=== PATIENT | male | born 1945 | race Caucasian/White ===

== ENCOUNTER 2023-09-16 20:34 | Inpatient (IN) | payer MEDICARE, SELFPAY ==
--- NOTE | ~2023-09-16 | XR_ITS ---
EXAMINATION: XR CHEST CLINICAL INFORMATION: CHF COMPARISON: None available. TECHNIQUE: Frontal view of the chest was obtained. FINDINGS: There is mild cardiomegaly with increased Sclerotic suggestive of CHF. The lungs are otherwise well-expanded with patchy opacity left lung base likely infiltrate or atelectasis. No gross bony abnormality. XR/XR chest 1V IMPRESSION: 1. Cardiomegaly with mild CHF. 2. Patchy opacity left lung base likely infiltrate or compressive atelectasis.
[2023-09-16 20:35] VITALS: O2SAT 68
[2023-09-16 20:43] VITALS: BP 178/112; PULSE 107; RESP 34; O2SAT 92; BMI 35.9
--- NOTE | 2023-09-16 20:45 | ECG_ITS ---
Test Reason : CHF Blood Pressure : / mmHG Vent. Rate : 106 BPM Atrial Rate : 000 BPM P-R Int : 000 ms QRS Dur : 120 ms QT Int : 368 ms P-R-T Axes : 000 -29 071 degrees QTc Int : 488 ms Undetermined rhythm Possible Atrial fibrillation with occasional Premature ventricular complexes Septal infarct , age undetermined Intra-ventricular conduction delay Abnormal ECG No previous ECGs available Referred By: Gail Vargas Electronically Signed By:MARIANGEL CHANEY MD
--- NOTE | 2023-09-16 20:48 | ED.SOB ---
HPI - SOB/Dyspnea General Chief Complaint: Dyspnea Stated Complaint: sob, hx chf, 68% ON 2L, ON CPAP NOW 93% Time Seen by Provider: 09/16/23 20:37 Source: EMS Mode of arrival: EMS Limitations: other History of Present Illness HPI Narrative: Patient comes to the emergency room via ambulance for severe shortness of breath. According to the paramedics, patient has history of CHF, no history of asthma or COPD. Patient's informed the paramedics that the patient usually uses 2 L of oxygen at home at baseline. Today, even with his 2 L, patient was very short of breath and his oxygen saturation was 68%. When EMS arrived, they confirmed that the patient was severely hypoxic. They tried increasing the oxygen to 6 L, oxygen saturation improved to the low 80s. Patient was switched to a CPAP, no medications were given. On arrival, patient has moderate to severe respiratory distress, unable to give any history at this time. Related Data Home Medications ?Medication ?Instructions ?Recorded ?Confirmed acetaminophen 325 mg tablet 1,000 mg PO DAILY 09/17/23 11/15/23 amlodipine 2.5 mg tablet 2.5 mg PO DAILY 09/17/23 11/15/23 apixaban 5 mg tablet 5 mg PO BID 09/17/23 11/15/23 duloxetine 60 mg capsule,delayed 60 mg PO DAILY 09/17/23 11/15/23 release finasteride 5 mg tablet 5 mg PO BEDTIME 09/17/23 11/15/23 furosemide 40 mg tablet 40 mg PO DAILY 09/17/23 11/15/23 ketoconazole 2 % shampoo 1 appl topical Q48H PRN dandruff 09/17/23 11/15/23 metoprolol succinate 50 mg 50 mg PO DAILY 09/17/23 11/15/23 tablet,extended release 24 hr omeprazole 20 mg capsule,delayed 20 mg PO DAILY@0630 09/17/23 11/15/23 release tamsulosin 0.4 mg capsule 0.4 mg PO BEDTIME 09/17/23 11/15/23 vibegron 75 mg tablet (Gemtesa) 75 mg PO BEDTIME 09/17/23 11/15/23 vitamin A-vitamin C-vit E-min 1 tab PO DAILY 09/17/23 11/15/23 tablet albuterol 90 mcg/actuation aerosol 1 mcg inhalation Q4H PRN Shortness 11/15/23 11/15/23 inhaler Of Breath Or Wheezing Allergies Allergy/AdvReac Type Severity Reaction Status Date / Time No Known Allergies Allergy Verified 11/15/23 09:50 Review of Systems Review of Systems: Yes Unobtainable due to mental condition REPLACED BY [facility] Past Medical History Medical History Chronic respiratory failure DVT (deep venous thrombosis) Afib Acute on chronic systolic and diastolic heart failure, NYHA class 3 Pneumonia Social History Social History Household Members: Spouse Household Members Other:: Kezia, . Housing: House Housing Other:: [facility] ?assisted living. Do you presently have visiting nurse or other home services: No Alcohol intake: current Alcohol intake frequency: holidays/special occasions only Patient Tobacco Use Status: Never used Tobacco service: No Physical Exam Vital Signs: Vital Signs: Last Vital Signs Temp 97.9 F 09/20/23 11:10 Pulse 73 09/20/23 11:10 Resp 18 09/20/23 11:10 BP 122/66 09/20/23 11:10 Pulse Ox 94 09/20/23 11:10 O2 Del Method Nasal Cannula 09/20/23 11:10 O2 Flow Rate 2 09/20/23 04:00 BMI result Body Mass Index 35.9 Const: Other: Appearance: Alert. Oriented X3. In respiratory distress, unable to talk Eyes: Pupils equal, round and reactive to light. ENT: Pharynx normal. Neck: Normal inspection. Neck supple. No lymph nodes noted. No crepitus CVS: Normal heart rate and rhythm. Pulses normal. Normal S1 and S2 Respiratory: In respiratory distress, unable to talk, bilateral crackles and rales Abdomen: Soft and nontender. No rigidity. No distention. Skin: Skin warm and dry. Normal skin color. Normal skin turgor. Extremities: +4 pitting edema bilaterally No Lacerations. No Rash Neuro: Oriented X 3. No motor deficit. No sensory deficit. Moving all extremities. No slurred speech. CN 2 through 12 grossly intact Psych: Anxious Course Course Course Narrative: -on arrival to the emergency room, patient was given IV Lasix, 1 in of nitropaste, started on CPAP. -after couple of hours, patient was able to be weaned down to nasal cannula 4 L, oxygen saturation 94%. Medications Administered Discontinued Medications Generic Name Dose Route Start Last Admin Trade Name Ricky PRN Reason Stop Dose Admin Amlodipine Besylate 2.5 mg 09/17/23 09:00 09/19/23 09:58 Amlodipine Besylate 2.5 Mg Tablet PO 2.5 mg DAILY REZA Administration Protocol Apixaban 5 mg 09/17/23 09:00 09/20/23 07:39 Apixaban 5 Mg Tablet PO 5 mg BID REZA Administration Apixaban 5 mg 09/17/23 09:00 09/17/23 09:02 Apixaban 5 Mg Tablet PO Not Given BID REZA Azithromycin 500 mg 09/16/23 21:50 09/16/23 22:28 Azithromycin 500 Mg Tablet PO 09/16/23 21:51 500 mg ONCE ONE Administration Azithromycin 500 mg 09/17/23 21:00 09/19/23 21:47 Azithromycin 500 Mg Tablet PO 500 mg BEDTIME REZA Administration Azithromycin 500 mg 09/20/23 14:50 09/20/23 15:03 Azithromycin 500 Mg Tablet PO 09/20/23 14:51 500 mg ONCE ONE Administration Cefuroxime Axetil 500 mg 09/20/23 14:50 09/20/23 15:03 Cefuroxime Axetil 500 Mg Tablet PO 09/20/23 14:51 500 mg ONCE ONE Administration Duloxetine HCl 60 mg 09/17/23 09:00 09/20/23 07:39 Duloxetine Hcl 60 Mg Capsule. PO 60 mg DAILY REZA Administration Duloxetine HCl 60 mg 09/17/23 09:00 09/17/23 09:03 Duloxetine Hcl 60 Mg Capsule. PO Not Given DAILY REZA Empagliflozin 10 mg 09/19/23 11:00 09/20/23 07:39 Empagliflozin 10 Mg Tablet PO 10 mg DAILY REZA Administration Finasteride 5 mg 09/17/23 09:00 09/20/23 07:40 Finasteride 5 Mg Tablet PO 5 mg DAILY REZA Administration Finasteride 5 mg 09/17/23 09:00 09/17/23 09:03 Finasteride 5 Mg Tablet PO Not Given DAILY REZA Furosemide 80 mg 09/16/23 20:44 09/16/23 21:05 Furosemide 100 Mg/10 Ml Vial IVPUSH 09/16/23 20:45 80 mg ONCE ONE Administration Protocol Furosemide 40 mg 09/17/23 09:00 09/19/23 10:02 Furosemide 40 Mg/4 Ml Vial IVPUSH Not Given BID@0900,1800 [facility] Protocol Furosemide 40 mg 09/20/23 09:15 09/20/23 09:10 Furosemide 40 Mg Tablet PO 40 mg DAILY REZA Administration Protocol Ceftriaxone Sodium 1 gm/ 50 mls @ 100 mls/hr 09/16/23 21:50 09/16/23 23:03 Sodium Chloride IV 09/16/23 22:19 Infused ONCE ONE Infusion Ceftriaxone Sodium 1 gm/ 50 mls @ 100 mls/hr 09/17/23 21:00 09/19/23 23:35 Sodium Chloride IV Infused BEDTIME REZA Infusion Furosemide 200 mg/ Sodium 100 mls @ 2.5 mls/hr 09/19/23 09:30 09/20/23 07:55 Chloride IVCONT Infused .Q24H REZA Infusion 5 MG/HR Latanoprost 1 drop 09/17/23 21:00 09/19/23 21:49 Latanoprost 0.005 % Ophth Mariza 2.5 Ml Drops EYE-RIGHT Not Given BEDTIME [facility] Lisinopril 2.5 mg 09/18/23 10:25 09/19/23 09:58 Lisinopril 2.5 Mg Tablet PO 2.5 mg DAILY REZA Administration Protocol Magnesium Oxide 800 mg 09/19/23 09:00 09/20/23 07:40 Magnesium Oxide 400 Mg Tablet PO 800 mg DAILY REZA Administration Metoprolol Succinate 50 mg 09/17/23 09:00 09/17/23 09:01 Metoprolol Succinate Er 50 Mg Tab.Er.24h PO 50 mg DAILY REZA Administration Metoprolol Succinate 50 mg 09/17/23 09:00 09/20/23 07:39 Metoprolol Succinate Er 50 Mg Tab.Er.24h PO 50 mg DAILY REZA Administration Protocol Nitroglycerin 1 inch 09/16/23 20:44 09/16/23 21:05 Nitroglycerin 2 % Oint 1 Gm Packet TRANSDERMA 09/16/23 20:45 1 inch ONCE ONE Administration Omeprazole 20 mg 09/17/23 09:00 09/20/23 07:39 Omeprazole 20 Mg Capsule.Dr PO 20 mg DAILY REZA Administration Potassium Chloride 20 meq 09/19/23 08:16 09/19/23 09:57 Potassium Chloride Packet 20 Meq Packet PO 09/19/23 08:17 20 meq ONCE ONE Administration Potassium Chloride 40 meq 09/20/23 08:57 09/20/23 09:10 Potassium Chloride Packet 20 Meq Packet PO 09/20/23 08:58 40 meq ONCE ONE Administration Potassium Chloride 20 meq 09/20/23 11:55 09/20/23 12:20 Potassium Chloride Er 20 Meq Tab.Er.Prt PO 09/20/23 11:56 20 meq ONCE ONE Administration Sodium Chloride 3 ml 09/17/23 00:00 09/20/23 14:37 0.9 % Sodium Chloride Flush 3 Ml Syringe IVFLUSH 3 ml QSHIFT REZA Administration Tamsulosin HCl 0.4 mg 09/17/23 21:00 09/19/23 21:47 Tamsulosin Hcl 0.4 Mg Capsule PO 0.4 mg BEDTIME REZA Administration Valsartan 40 mg 09/19/23 21:00 09/20/23 07:39 Valsartan 40 Mg Tablet PO 40 mg BID REZA Administration Protocol Valsartan 40 mg 09/20/23 09:15 09/20/23 09:10 Valsartan 40 Mg Tablet PO 40 mg BID REZA Administration Protocol Medical Decision Making Medical Decision Making MDM Narrative: -at this time, 21:50, lab results starting to come back. Patient has a BNP of 609, no prior comparison for a baseline pain. My Interpretation of chest x-ray: Mild CHF. -also, this time chest x-ray report became available, patient has patchy opacities in the left lung, likely pneumonia. At this time, we will start IV antibiotics. Patient is still in CHF, this time we will not start IV fluids -patient was weaned off CPAP. Patient is now on 4 L of oxygen. Now that patient is off CPAP and able to speak. Patient states that he feels much better, almost feels back to baseline. Now he explains that over the last few days he has had some subjective fever and chills. Patient thinks that he may have been finding some viral illness. -patient's blood pressure is stable, patient has not been hypotensive, no fever, after the treatment with CPAP, IV Lasix and a good amount of urine output, patient's vitals stabilized. Patient does have pneumonia but sepsis/severe sepsis is not suspected. Patient's lactic acid elevated secondary to hypoxia from CHF. At this time, even small amounts of fluids would reverse the progress that patient has made do more harm than benefit the patient Differential Diagnosis Differential Diagnoses: The differential diagnosis associated with the presentation includes (CHF, flash pulmonary edema, pneumonia) Admission/Observation Consideration of admission/observation: Escalation of care including admission/observation considered Consult Healthcare Provider Management of the patient was discussed with: Hospitalist Lab Data MDM Lab Attestation statement: I reviewed the patient's lab results. 09/18/23 05:50 09/20/23 06:37 Labs: Lab Results 09/16/23 09/16/23 Range/Units 21:02 23:32 WBC 21.6 H (4.8-10.8) X10*3/uL RBC 5.11 (4.60-5.80) X10*6/uL Hgb 15.9 (14.0-18.0) g/dl Hct 47.2 (42.0-52.0) % MCV 92.4 (80.0-98.0) fL MCH 31.1 (27.0-33.0) pg MCHC 33.7 (31.0-36.0) g/dl RDW 13.1 (11.0-16.0) % Plt Count 212 (160-400) X10*3/uL MPV 10.0 (9.4-12.4) fL Immature Gran % (Auto) 0.5 H (0.0-0.4) % Neut % (Auto) 88.0 H (45-73) % Lymph % (Auto) 6.8 L (20-40) % [place] % (Auto) 4.1 (2-11) % Eos % (Auto) 0.3 (0-4) % Baso % (Auto) 0.3 (0-2) % Lymph # (Auto) 1.5 (1.2-4.9) X10*3/uL [place] # (Auto) 0.9 (0.1-1.2) X10*3/uL Eos # (Auto) 0.1 (0.0-0.4) X10*3/uL Baso # (Auto) 0.1 (0.0-0.2) X10*3/uL Abs Immat Gran (auto) 0.11 H (0.00-0.03) X10*3/uL Absolute Neuts (auto) 19.0 H (2.0-8.3) x10*3/uL Absolute Nucleated RBC 0.000 (0.0-0.012) X10*3/uL Nucleated RBC % (auto) 0.0 (0.0-0.2) /100WBC Sodium 142 (135-145) mmol/L Potassium 3.4 (3.3-5.1) mmol/L Chloride 104 (96-108) mmol/L Carbon Dioxide 27 (22-29) mmol/L Anion Gap 14 (12-20) BUN 16 (9-16) mg/dL Creatinine 0.83 (0.5-1.4) mg/dL Estim Creat Clear Calc 99.2 Estimated GFR > 60 Random Glucose 120 H (60-115) mg/dL Lactic Acid 3.0 H* (0.5-2.0) mmol/L Lactic Acid F/U @ 2Hr 1.6 (0.5-2.0) mmol/L Calcium 9.3 (8.4-10.2) mg/dL Magnesium 1.6 (1.6-2.6) mg/dL Total Bilirubin 1.3 H (0.0-1.0) mg/dL Direct Bilirubin 0.5 (0.0-0.5) mg/dL AST 10 (5-37) U/L ALT 6 (0-40) U/L Alkaline Phosphatase 82 (39-117) U/L Troponin I High Sens 7.8 (<3.5-35.0) ng/L B-Natriuretic Peptide 609 H (<100) pg/mL Total Protein 7.8 (6.5-8.0) g/dL Albumin 4.0 (3.5-5.0) g/dL COVID-19 ([facility]) Negative (Negative) COVID-19 Clin Com See Note Influenza Type A (PCR) NEGATIVE (Negative) Influenza Type B (PCR) NEGATIVE (Negative) RSV RNA Qual (PCR) NEGATIVE (Negative) SARS-CoV-2 RNA (RT-PCR) NEGATIVE (Negative) Independent Interpretation I performed an independent interpretation of an: EKG (Interpretation of EKG: Sinus rhythm, heart rate 106, no ST segment depression or elevation, no T-wave inversion, QTC 488, frequent PVCs) and Plain X-Ray Radiology Impression Discussion of test interpretation with radiology: I have reviewed the radiologist's reading. (My interpretation of chest x-ray: Pulmonary edema, possible pneumonia left lung) Independent Historian Clinical information obtained from an independent historian. History obtained from or confirmed by: Spouse (I spoke with the patient's over the phone) Critical Care Time Critical Care Time Critical Care Time: Yes Total Critical Care Time: 90 Attestation: I have personally provided critical care time. Time includes review of lab data, radiology results, discussion with consultants, and monitoring for potential decompensation. Intervention performed as documented. Discharge Plan Discharge Clinical Impression: Pneumonia CHF exacerbation Qualifiers: Heart failure type: systolic Qualified Code(s): I50.23 - Acute on chronic systolic (congestive) heart failure Patient Disposition: Admitted As Inpatient Interventions: Admission Worksheet (ED) Last Done: 09/17/23 20:59 Discharge Date/Time: 09/17/23 20:59 Sepsis Bolus Exclusion Sepsis Bolus Exclusion Date of Occurrence: 09/16/23 This patient met severe sepsis criteria due to the following condition(s):: Lactate>=4mmol/L and Documentation of septic shock (system making me answer, not a sepsis case, its CHF) In my clinical judgement the administration of 30 ml/kg of crystalloid would be detrimental to this patient due to the patient's following conditions:: Other Other (must be specific):: CHF Replace the 30 mls/kg with (*zero amount not acceptable): *Note: One of the aggarwal must be documented
[2023-09-16 20:56] VITALS: PULSE 107; RESP 29; O2SAT 96
[2023-09-16] MEDS: Furosemide 100 MG/10 ML VIAL 80 MG IVPUSH (21:05)
[2023-09-16] MEDS: Nitroglycerin 2 % Oint 1 GM Packet 1 INCH TRANSDERMA (21:05)
[2023-09-16 21:11] VITALS: BP 173/96; O2SAT 94
[2023-09-16 21:11] LABS: MANUAL DIFF FLAG NO
[2023-09-16 21:13] LABS: Basophils Absolute Auto 0.1 X10*3/uL (0.0-0.2); Basophils Percent Auto 0.3 % (0-2); Eosinophils Absolute Auto 0.1 X10*3/uL (0.0-0.4); Eosinophils Percent Auto 0.3 % (0-4); Hematocrit 47.2 % (42.0-52.0); Hemoglobin 15.9 g/dl (14.0-18.0); Imm Gran Abs Auto 0.11 X10*3/uL (0.00-0.03); Imm Gran Pct Auto 0.5 % (0.0-0.4); Lymphocytes Absolute Auto 1.5 X10*3/uL (1.2-4.9); Lymphocytes Percent Auto 6.8 % (20-40); Mean Corpuscular HGB Conc 33.7 g/dl (31.0-36.0); Mean Corpuscular Hemoglobin 31.1 pg (27.0-33.0); Mean Corpuscular Volume 92.4 fL (80.0-98.0); Monocytes Absolute Auto 0.9 X10*3/uL (0.1-1.2); Monocytes Percent Auto 4.1 % (2-11); Platelet Count 212 X10*3/uL (160-400); Red Blood Count 5.11 X10*6/uL (4.60-5.80); Red Cell Distribution Width 13.1 % (11.0-16.0); White Blood Count 21.6 X10*3/uL (4.8-10.8)
[2023-09-16 21:27] LABS: COVID-19 Test Negative (Negative); IDNOW Serial# 08D9AD1C
[2023-09-16 21:28] LABS: Alanine Aminotransferase 6 U/L (0-40); Alkaline Phosphatase 82 U/L (39-117); Anion Gap 14 (12-20); Aspartate Amino Transferase 10 U/L (5-37); Bilirubin Direct 0.5 mg/dL (0.0-0.5); Bilirubin Total 1.3 mg/dL (0.0-1.0); Blood Urea Nitrogen 16 mg/dL (9-16); Calcium 9.3 mg/dL (8.4-10.2); Carbon Dioxide 27 mmol/L (22-29); Chloride 104 mmol/L (96-108); Creatinine Clr Calc Pharmacy 99.2; Estimated Glomerular Filt Rate > 60; Glucose Random 120 mg/dL (60-115); Magnesium 1.6 mg/dL (1.6-2.6); Potassium 3.4 mmol/L (3.3-5.1); Sodium 142 mmol/L (135-145); Total Protein 7.8 g/dL (6.5-8.0)
[2023-09-16 21:33] LABS: B Type Natriuretic Peptide 609 pg/mL (<100)
[2023-09-16 21:34] LABS: Troponin-I High Sensitivity 7.8 ng/L (<3.5-35.0)
[2023-09-16 21:50] VITALS: BP 125/73
[2023-09-16 22:00] VITALS: BP 119/72; PULSE 101; RESP 18; TEMP 36.8; O2SAT 94
[2023-09-16] MEDS: cefTRIAXone sodium 1 GM in 0.9 % Sodium Chloride 50 ML IV (22:28)
[2023-09-16] MEDS: Azithromycin 500 MG TABLET PO (22:28)
[2023-09-16 22:54] LABS: Reflex Lactate? Lactic Acid Added
--- NOTE | 2023-09-16 23:18 | PC.NURSE ---
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 pt wears 2L o2 at baseline, was found to be 70%, bumped up to 4L by ems, given duoneb tx still 78%, placed on cpap and arrived to ED at 89%. RT placed pt on cpap here, sats up to 95%. ekg done, labs sent, placed on radiation monitor, cxray done, lasix administered via iv with nitropaced, pt using urinal putting out urine no issues. first urine ammount ~400cc in brief. pt then put out ~600 cc in urinal. repeat lactic being drawn, pt given iv abx for pneumonia, on radiation monitor, offers no current complaints reports wob greatly improved, no respiratory distress currently. pt taken off cpap by @~21:45, wearing 4L O2 95% no distress. plan of care ongoing
[2023-09-16 23:49] LABS: ~Lactic Acid-LAB USE ONLY 1.6 mmol/L (0.5-2.0)
--- NOTE | 2023-09-16 23:50 | P.HPHOSP_ITS ---
History of Present Illness Date of Service: 09/16/23 Chief Complaint: sob 78M PMH unspecified CHF, obesity, chronic hypoxic respiratory failure on 2L home oxygen, DVT/PE, permanent afib, HTN, bph, mood disorder, presented with sob. patient reports about 1 week of increased edema and sob. on day of presentation became severe hypoxic and dyspneic, called EMS, patient was saturating in low 80s on 6L, switched to bipap. was in severe respiratory distress in ED, imaging consistent with chf, with question of left basilar penumonia. placed on cpap and given diuretics and nitropaste with significant improvement. Review of Systems 2 Review of Systems: Yes all other systems are reviewed and are negative [facility] Social History Smoked in Last 30 Days: No Use of substances other than those prescribed or required for medical reasons: No Advance Directives: No Advance Directives Information Provided: No Meds Allergies Allergy/AdvReac Type Severity Reaction Status Date / Time No Known Allergies Allergy Verified 09/16/23 20:44 Active Medications: Current Medications Azithromycin (Azithromycin 500 Mg Tablet) 500 mg PO Q24H REZA Furosemide (Furosemide 40 Mg/4 Ml Vial) 40 mg IVPUSH BID@0900,1800 REZA; Protocol Ceftriaxone Sodium 1 gm/ (Sodium Chloride) 50 mls @ 100 mls/hr IV Q24H REZA Sodium Chloride (0.9 % Sodium Chloride Flush 3 Ml Syringe) 3 ml IVFLUSH QSHIFT REZA Physical Exam 2 Vital Signs and Narrative: Vital Signs: Last Vital Signs Temp 98.3 F 09/16/23 22:00 Pulse 101 H 09/16/23 22:00 Resp 18 09/16/23 22:00 BP 119/72 09/16/23 22:00 Pulse Ox 94 09/16/23 22:00 O2 Del Method Nasal Cannula 09/16/23 22:00 O2 Flow Rate 4 09/16/23 22:00 BMI result Body Mass Index 35.9 General: AO X 3, no acute distress Resp: Crackles bilateral, no accessory muscles used CVS: S1,S2,RRR, edema GI: soft, non tender, non distended Neuro: motor grossly intact, alert Psych: appropriate affect, appropriate insight Results Labs 09/16/23 21:02 09/16/23 21:02 Labs: Laboratory Results - last 24 hr 09/16/23 09/16/23 21:02 23:32 MCV 92.4 MCH 31.1 MCHC 33.7 RDW 13.1 Plt Count 212 MPV 10.0 Immature Gran % (Auto) 0.5 H Neut % (Auto) 88.0 H Lymph % (Auto) 6.8 L [place] % (Auto) 4.1 Eos % (Auto) 0.3 Baso % (Auto) 0.3 Lymph # (Auto) 1.5 [place] # (Auto) 0.9 Eos # (Auto) 0.1 Baso # (Auto) 0.1 Abs Immat Gran (auto) 0.11 H Absolute Neuts (auto) 19.0 H Absolute Nucleated RBC 0.000 Nucleated RBC % (auto) 0.0 Anion Gap 14 Estim Creat Clear Calc 99.2 Estimated GFR > 60 Random Glucose 120 H Lactic Acid 3.0 H* Lactic Acid F/U @ 2Hr 1.6 Calcium 9.3 Magnesium 1.6 Total Bilirubin 1.3 H Direct Bilirubin 0.5 AST 10 ALT 6 Alkaline Phosphatase 82 B-Natriuretic Peptide 609 H Total Protein 7.8 Albumin 4.0 COVID-19 ([facility]) Negative COVID-19 Clin Com See Note Imaging Radiologist's Impressions: Impressions Chest X-Ray 09/16/23 21:08 IMPRESSION: 1. Cardiomegaly with mild CHF. 2. Patchy opacity left lung base likely infiltrate or compressive atelectasis. Assessment and Plan (1) CHF exacerbation: Status: Acute Plan 78M PMH unspecified CHF, obesity, chronic hypoxic respiratory failure on 2L home oxygen, DVT/PE, permanent afib, HTN, bph, mood disorder presented with sob acute on chronic hpyoxic respiratory failure due to acute on chronic unspecified chf and possible sepsis due to pneumonia no severe sepsis (resp failure primarly chf, lactate due to hypoxia from chf) iv lasix, echo, wean o2 empiric rocephin, azitrho, follow up cultures obesity weight loss recommended DVT/PE history permanent afib toprol, eliquis HTN amldoipine, toprol bph flomax, proscar mood disorder on cymbalta DNR/DNI patient presented with severe respiratory distress requiring cpap, increased o2, will need iv diuresis, and likely atleast 2 midnights inpatient. Quality Stroke Does the patient have a stroke diagnosis?: No VTE Prior VTE?: Yes VTE Risk Level:: Medical - moderate - high VTE Device Contraindication: Treatment Not Indicated VTE Drug Contraindication: N/A - Med Ordered
[2023-09-17] VITALS (7 sets, daily range): BP systolic 120–133; BP diastolic 61–76; PULSE 82–95; RESP 14–22; TEMP 36.6–37; O2SAT 95–98
[2023-09-17 00:14] LABS: Influenza A PCR NEGATIVE (Negative); Influenza B PCR NEGATIVE (Negative); Resp Syncy Virus RNA Qual PCR NEGATIVE (Negative); SARS COV2 PCR INHOUSE NEGATIVE (Negative)
[2023-09-17 06:41] LABS: Hematocrit 42.9 % (42.0-52.0); Hemoglobin 14.6 g/dl (14.0-18.0); Mean Corpuscular Hemoglobin 31.8 pg (27.0-33.0); Mean Corpuscular Volume 93.5 fL (80.0-98.0); Mean Platelet Volume 10.8 fL (9.4-12.4); Platelet Count 210 X10*3/uL (160-400); Red Blood Count 4.59 X10*6/uL (4.60-5.80); Red Cell Distribution Width 13.2 % (11.0-16.0); White Blood Count 23.6 X10*3/uL (4.8-10.8)
[2023-09-17 06:58] LABS: Anion Gap 13 (12-20); Blood Urea Nitrogen 17 mg/dL (9-16); Calcium 8.8 mg/dL (8.4-10.2); Carbon Dioxide 26 mmol/L (22-29); Chloride 106 mmol/L (96-108); Creatinine Clr Calc Pharmacy 101.7; Estimated Glomerular Filt Rate > 60; Glucose Fasting 137 mg/dL (60-99); Magnesium 1.7 mg/dL (1.6-2.6); Potassium 3.3 mmol/L (3.3-5.1); Sodium 142 mmol/L (135-145)
--- NOTE | 2023-09-17 07:00 | CA_ITS ---
Transthoracic Echocardiogram Patient (Last, First, Middle): Twila Escudero Martin Gender: Male Date of : 1945 Age: 78 Procedure Date: 09/17/2023 Procedure Type: Transthoracic Echocardiogram Location: ER Height: 185. cm Weight: 122.93 kg BSA: 2.44 m2 Heart Rate: 71 bpm BP: 125 / 69 mmHg [employer] Receiving Clerk: RAMONITA Referring MD: Vic Penaloza MD Security Shift Supervisor: Ernesto Monet MD Symptoms: chf Study Quality: Fair/w Contrast ECG Rhythm: Sinus with extra beats Conclusions: - 1. [id number] LV systolic dysfunction with LVEF of 40-45% with severe left ventricular hypertrophy and at least grade 2 diastolic dysfunction 2. Mild left atrial enlargement 3. Calcific aortic valve and mitral annular calcification noted with no significant abnormality of cardiac valvular Dopplers 4. Mildly dilated ascending aorta at 3.9 cm 5. Normal RV systolic pressure 6. No gross pericardial effusion Findings Procedure Information Contrast agent, definity, is being given per protocol without apparent complications. Left Ventricle Normal left ventricular cavity size. There is severely increased left ventricular wall thickness. The left ventricular systolic function is mild to moderately decreased. The visually estimated ejection fraction is between 40-45%. Regional wall motion abnormalities can not be excluded due to suboptimal endocardial definition. Spectral Doppler is indicative of a pseudonormal filling pattern. E/E prime ratio is >15, consistent with elevated filling pressures. Evidence suggests grade II (moderate) diastolic dysfunction. Right Ventricle Mildly increased right ventricular cavity size. There is normal right ventricular systolic function. Atria The left atrium is mildly dilated. Interatrial shunt cannot be excluded. The right atrium is likely dilated. Aortic Valve There is mild calcification of the aortic valve. There is moderate thickening of the aortic valve. There is no aortic valve stenosis. The mean gradient is 5 mmHg. There is no aortic valve regurgitation. Mitral Valve There is mild anterior and moderate posterior mitral leaflet thickening. There is moderate mitral annular calcification. There is trace mitral valve regurgitation. There is no mitral valve stenosis. Pulmonic Valve The pulmonic valve was not well visualized. Tricuspid Valve Likely normal tricuspid valve structure and function. There is trace tricuspid valve regurgitation. The right ventricular systolic pressure is normal. The right ventricular systolic pressure is 31 mmHg. Normal right atrial pressure. There is no evidence of pulmonary hypertension. Great Vessels The pulmonary artery was not well visualized. There is mild dilatation of the ascending aorta measuring 3.90 cm. Venous The inferior vena cava is normal in size and collapses greater than 50% with inspiration. Pericardium/Pleural There is no evidence of pericardial effusion. Prior Study Comparison No prior study available for comparison. Measurements 2D Linear Measurements IVSd: 1.98 0.6-0.9/0.6-1.0 cm LVIDd: 4.61 3.9-5.3/4.2-5.9 cm LVIDd Index: 1.89 2.4-3.2/2.2-3.1 cm/m2 LVIDs: 3.76 2.0-3.6 cm LVPWd: 1.82 0.7-1.1 cm LA Diam: 4.90 2.7-3.8/3.0-4.0 cm LAIDs Index: 2.01 1.5-2.3 cm/m2 LV Mass: 516.73 67-162/88-224 g LV Mass Index: 211.77 43-95/49-115 g/m2 LVOT Diam: 2.40 3.0+(-)1.3 cm 2D Systolic Function EF 4C: 34.80 >55% EF 2C: 45.00 >55% Mitral Valve MV Pk E: 1.00 MV PK A: 0.48 MV Decel Time: 164.00 E/A: 2.10 E'Lateral: 5.92 E'Medial: 5.07 E/E' Med: 19.70 E/E' Lat: 16.90 PHT: 48.00 MVA PHT: 4.58 Decel Giles: 6.12 Aortic Valve AoV Pk Alessio: 1.53 AoV Mn Alessio: 1.07 AoV VTI: 0.25 AoV Pk Grad: 9.00 Aov Mn Grad: 5.00 MIMI Cont.VTI: 2.73 LVOT LVOT Pk Alessio: 0.83 LVOT Mn Alessio: 0.63 LVOT VTI: 0.15 LVOT Pk Grad: 3.00 LVOT Mn Grad: 2.00 LVOT Diam: 2.40 LVOT Area: 4.52 Diastolic Function MV Pk E: 1.00 MV Pk A: 0.48 E/A: 2.10 E'Medial: 5.07 E/E' Med: 19.70 E' Laterial: 5.92 E/E' Lat: 16.90 Right Ventricle TAPSE (mm): 18.80 TVS' Alessio: 11.40 Tricuspid Valve TR Pk Alessio: 2.66 TR Pk Grad: 28.00 RA Press: 3.00 RVSP: 31.00 Great Vessels Aorta Sinus of Valsalva: 3.90 2.0-3.5 cm Ao Asc: 3.90 2.1-3.4 cm Pulmonary Valve PV Pk Alessio: 1.07 Peak PV Grad: 5.00 Updated in Other Vendor System with Status of Final Ernesto Monet MD electronically signed on 09/17/2023 4:06:21 PM with status of Final
--- NOTE | 2023-09-17 08:41 | PHA.MEDREC ---
Pharmacy Consult ? Medication Reconciliation Pharmacy has completed the medication reconciliation with the patient, has detailed med list.
[2023-09-17] MEDS: amLODIPine Besylate 2.5 MG TABLET PO (09:01)
[2023-09-17] MEDS: Metoprolol Succinate ER 50 MG TAB.ER.24H PO (09:01)
[2023-09-17] MEDS: DULoxetine HCl 60 MG CAPSULE.DR PO (09:01)
[2023-09-17] MEDS: Omeprazole 20 MG CAPSULE.DR PO (09:01)
[2023-09-17] MEDS: Furosemide 40 MG/4 ML VIAL IVPUSH ×2 (09:01→19:13)
[2023-09-17] MEDS: Finasteride 5 MG TABLET PO (09:01)
[2023-09-17] MEDS: Apixaban 5 MG TABLET PO ×2 (09:01→22:44)
[2023-09-17] MEDS: 0.9 % Sodium Chloride Flush 3 ML SYRINGE IVFLUSH ×2 (09:02→15:53)
--- NOTE | 2023-09-17 09:13 | PC.NURSE ---
patient remains alert and oriented with even and unlabored respirations. ate breakfast, medicated per the DEC. emptied commode which contained a large bowel movement. patient remains on 4L nasal cannula, states he feels much improvement from last night when he came in. offering no further complaints at this time, call beyer is within reach.
--- NOTE | 2023-09-17 11:06 | P.PNIM_ITS ---
Subjective Subjective Date of Service: 09/17/23 Interval History: f/u on resp failre d/t heart failure and PNA he feels better but not at baseline persistent swelling in the legs Physical Exam 2 Vital Signs: Vital Signs: Last Vital Signs Temp 97.8 F 09/17/23 08:58 Pulse 85 09/17/23 08:58 Resp 14 09/17/23 08:58 BP 125/69 09/17/23 08:58 Pulse Ox 98 09/17/23 08:58 O2 Del Method Nasal Cannula 09/17/23 08:58 O2 Flow Rate 4 09/17/23 08:58 BMI result Body Mass Index 35.9 Const: Other: General: AO X 3, no acute distress Resp: rales at bases, 2+ pedal edema CVS: S1,S2,RRR GI: +BS, NT, no distention Skin: No rash Neuro: motor grossly intact Psych: appropriate affect Objective Data Active Medications Acetaminophen (Acetaminophen 325 Mg Tablet) 975 mg PO DAILY PRN PRN Reason: Pain, Moderate(Pain Scale 4-6) Amlodipine Besylate (Amlodipine Besylate 2.5 Mg Tablet) 2.5 mg PO DAILY [facility]; Protocol Last Admin: 09/17/23 09:01 Dose: 2.5 mg Documented By: MARIANA Apixaban (Apixaban 5 Mg Tablet) 5 mg PO BID [facility] Last Admin: 09/17/23 09:01 Dose: 5 mg Documented By: MARIANA Azithromycin (Azithromycin 500 Mg Tablet) 500 mg PO BEDTIME [facility] Duloxetine HCl (Duloxetine Hcl 60 Mg Capsule.Dr) 60 mg PO DAILY [facility] Last Admin: 09/17/23 09:01 Dose: 60 mg Documented By: MARIANA Finasteride (Finasteride 5 Mg Tablet) 5 mg PO DAILY [facility] Last Admin: 09/17/23 09:01 Dose: 5 mg Documented By: MARIANA Furosemide (Furosemide 40 Mg/4 Ml Vial) 40 mg IVPUSH BID@0900,1800 [facility]; Protocol Last Admin: 09/17/23 09:01 Dose: 40 mg Documented By: MARIANA Ceftriaxone Sodium 1 gm/ (Sodium Chloride) 50 mls @ 100 mls/hr IV BEDTIME [facility] Latanoprost (Latanoprost 0.005 % Ophth Mariza 2.5 Ml Drops) 1 drop EYE-RIGHT BEDTIME [facility] Metoprolol Succinate (Metoprolol Succinate Er 50 Mg Tab.Er.24h) 50 mg PO DAILY [facility]; Protocol Last Admin: 09/17/23 09:03 Dose: Not Given Documented By: MARIANA Non-Admin Reason: Duplicate Order Omeprazole (Omeprazole 20 Mg Capsule.Dr) 20 mg PO DAILY [facility] Last Admin: 09/17/23 09:01 Dose: 20 mg Documented By: MARIANA Sodium Chloride (0.9 % Sodium Chloride Flush 3 Ml Syringe) 3 ml IVFLUSH QSHIFT [facility] Last Admin: 09/17/23 09:02 Dose: 3 ml Documented By: MARIANA Tamsulosin HCl (Tamsulosin Hcl 0.4 Mg Capsule) 0.4 mg PO BEDTIME [facility] Labs 09/17/23 06:10 09/17/23 06:10 Labs: Laboratory Results - last 24 hr 09/16/23 09/16/23 09/17/23 21:02 23:32 06:10 MCV 92.4 93.5 MCH 31.1 31.8 MCHC 33.7 34.0 RDW 13.1 13.2 Plt Count 212 210 MPV 10.0 10.8 Immature Gran % (Auto) 0.5 H Neut % (Auto) 88.0 H Lymph % (Auto) 6.8 L [place] % (Auto) 4.1 Eos % (Auto) 0.3 Baso % (Auto) 0.3 Lymph # (Auto) 1.5 [place] # (Auto) 0.9 Eos # (Auto) 0.1 Baso # (Auto) 0.1 Abs Immat Gran (auto) 0.11 H Absolute Neuts (auto) 19.0 H Absolute Nucleated RBC 0.000 0.000 Nucleated RBC % (auto) 0.0 0.0 Anion Gap 14 13 Estim Creat Clear Calc 99.2 101.7 Estimated GFR > 60 > 60 Random Glucose 120 H Fasting Glucose 137 H Lactic Acid 3.0 H* Lactic Acid F/U @ 2Hr 1.6 Calcium 9.3 8.8 Magnesium 1.6 1.7 Total Bilirubin 1.3 H Direct Bilirubin 0.5 AST 10 ALT 6 Alkaline Phosphatase 82 B-Natriuretic Peptide 609 H Total Protein 7.8 Albumin 4.0 COVID-19 ([facility]) Negative COVID-19 Clin Com See Note Influenza Type A (PCR) NEGATIVE Influenza Type B (PCR) NEGATIVE RSV RNA Qual (PCR) NEGATIVE SARS-CoV-2 RNA (RT-PCR) NEGATIVE Assessment and Plan (1) CHF exacerbation: Status: Acute (2) Pneumonia: Status: Acute Plan 78M PMH unspecified CHF, obesity, chronic hypoxic respiratory failure on 2L home oxygen, DVT/PE, permanent afib, HTN, bph, mood disorder presented with sob acute on chronic hpyoxic respiratory failure due to acute on chronic unspecified chf and possible sepsis due to pneumonia no severe sepsis (resp failure primarly chf, lactate due to hypoxia from chf) iv lasix, echo, wean o2 empiric rocephin, azitrho, follow up cultures, monitor wbc obesity weight loss recommended DVT/PE history, eliquis permanent afib toprol, eliquis HTN amldoipine, toprol bph flomax, proscar mood disorder on cymbalta DNR/DNI need for inpatient continues to need more oxygen, and on IV diureticpatient presented with severe respiratory distress requiring cpap, increased o2, will need iv diuresis, and likely atleast 2 midnights inpatient Quality Stroke Does the patient have a stroke diagnosis?: No VTE Prior VTE?: Yes VTE Risk Level:: Medical - moderate - high VTE Device Contraindication: Treatment Not Indicated VTE Drug Contraindication: N/A - Med Ordered
--- NOTE | 2023-09-17 12:43 | PC.NURSE ---
continues to rest quietly in room with even and unlabored respirations, appears to be sleeping. is at the bedside, call beyer within reach
--- NOTE | 2023-09-17 16:00 | MHC.CM.PN ---
CM MET WITH PT AND AT BEDSIDE PT LIVES AT HOME WITH HIS AND IS INDEPENDENT WITH CARE HE HAS A ROLLATOR AND ELECTRIC W/C FOR MOBILITY HE DENIES HAVING ANY HOME SERVICES PT STATES HE HAS A HCP AT HOME, COPY REQUESTED PCP: IAN REEVES AT [facility] DELIVERED DCP: HOME NO SERVICES VS WITH [facility] TO TRANSPORT
[2023-09-17] MEDS: Tamsulosin HCL 0.4 MG CAPSULE PO (22:44)
[2023-09-17] MEDS: Azithromycin 500 MG TABLET PO (22:44)
[2023-09-17] MEDS: cefTRIAXone sodium 1 GM in 0.9 % Sodium Chloride 50 ML IV (22:44)
[2023-09-18] VITALS (7 sets, daily range): BP systolic 105–127; BP diastolic 54–79; PULSE 58–89; RESP 16–21; TEMP 36.7–37.1; O2SAT 95–97
[2023-09-18] MEDS: 0.9 % Sodium Chloride Flush 3 ML SYRINGE IVFLUSH ×4 (00:18→21:12)
[2023-09-18 06:17] LABS: Anion Gap 12 (12-20); Blood Urea Nitrogen 19 mg/dL (9-16); Calcium 9.1 mg/dL (8.4-10.2); Carbon Dioxide 30 mmol/L (22-29); Chloride 103 mmol/L (96-108); Creatinine Clr Calc Pharmacy 93.6; Estimated Glomerular Filt Rate > 60; Glucose Random 118 mg/dL (60-115); Hematocrit 40.9 % (42.0-52.0); Hemoglobin 13.6 g/dl (14.0-18.0); Mean Corpuscular HGB Conc 33.3 g/dl (31.0-36.0); Mean Corpuscular Hemoglobin 30.9 pg (27.0-33.0); Mean Platelet Volume 10.6 fL (9.4-12.4); Platelet Count 179 X10*3/uL (160-400); Potassium 3.3 mmol/L (3.3-5.1); Red Cell Distribution Width 13.2 % (11.0-16.0); Sodium 142 mmol/L (135-145); White Blood Count 11.1 X10*3/uL (4.8-10.8)
[2023-09-18] MEDS: Furosemide 40 MG/4 ML VIAL IVPUSH ×2 (08:31→17:08)
[2023-09-18] MEDS: DULoxetine HCl 60 MG CAPSULE.DR PO (08:32)
[2023-09-18] MEDS: Apixaban 5 MG TABLET PO ×2 (08:32→21:10)
[2023-09-18] MEDS: Omeprazole 20 MG CAPSULE.DR PO (08:32)
[2023-09-18] MEDS: Finasteride 5 MG TABLET PO (08:32)
[2023-09-18] MEDS: Metoprolol Succinate ER 50 MG TAB.ER.24H PO (08:32)
[2023-09-18] MEDS: amLODIPine Besylate 2.5 MG TABLET PO (08:32)
--- NOTE | 2023-09-18 10:18 | P.PNIM_ITS ---
Subjective Subjective Date of Service: 09/18/23 Interval History: f/u on heart failure, PNA overall seems better, still on high amout of O2 Physical Exam 2 Vital Signs: Vital Signs: Last Vital Signs Temp 98.8 F 09/18/23 07:03 Pulse 87 09/18/23 07:03 Resp 20 09/18/23 07:03 BP 118/79 09/18/23 07:03 Pulse Ox 96 09/18/23 07:03 O2 Del Method Nasal Cannula 09/18/23 07:03 O2 Flow Rate 4 09/18/23 07:03 BMI result Body Mass Index 35.9 Const: Other: General: AO X 3, no acute distress Resp: rales at bases, 1+ pedal edema CVS: S1,S2,RRR GI: +BS, NT, no distention Skin: No rash Neuro: motor grossly intact Psych: appropriate affect Objective Data Active Medications Acetaminophen (Acetaminophen 325 Mg Tablet) 975 mg PO DAILY PRN PRN Reason: Pain, Moderate(Pain Scale 4-6) Amlodipine Besylate (Amlodipine Besylate 2.5 Mg Tablet) 2.5 mg PO DAILY [facility]; Protocol Last Admin: 09/18/23 08:32 Dose: 2.5 mg Documented By: MEREDITH Apixaban (Apixaban 5 Mg Tablet) 5 mg PO BID [facility] Last Admin: 09/18/23 08:32 Dose: 5 mg Documented By: MEREDITH Azithromycin (Azithromycin 500 Mg Tablet) 500 mg PO BEDTIME [facility] Last Admin: 09/17/23 22:44 Dose: 500 mg Documented By: ALVIN Duloxetine HCl (Duloxetine Hcl 60 Mg Capsule.) 60 mg PO DAILY [facility] Last Admin: 09/18/23 08:32 Dose: 60 mg Documented By: MEREDITH Finasteride (Finasteride 5 Mg Tablet) 5 mg PO DAILY [facility] Last Admin: 09/18/23 08:32 Dose: 5 mg Documented By: MEREDITH Furosemide (Furosemide 40 Mg/4 Ml Vial) 40 mg IVPUSH BID@0900,1800 [facility]; Protocol Last Admin: 09/18/23 08:31 Dose: 40 mg Documented By: MEREDITH Ceftriaxone Sodium 1 gm/ (Sodium Chloride) 50 mls @ 100 mls/hr IV BEDTIME [facility] Last Infusion: 09/17/23 23:15 Dose: Infused Documented By: ALVIN Latanoprost (Latanoprost 0.005 % Ophth Mariza 2.5 Ml Drops) 1 drop EYE-RIGHT BEDTIME [facility] Last Admin: 09/17/23 23:07 Dose: Not Given Documented By: ALVIN Non-Admin Reason: Med Not Available Metoprolol Succinate (Metoprolol Succinate Er 50 Mg Tab.Er.24h) 50 mg PO DAILY [facility]; Protocol Last Admin: 09/18/23 08:32 Dose: 50 mg Documented By: MEREDITH Omeprazole (Omeprazole 20 Mg Capsule.) 20 mg PO DAILY [facility] Last Admin: 09/18/23 08:32 Dose: 20 mg Documented By: MEREDITH Sodium Chloride (0.9 % Sodium Chloride Flush 3 Ml Syringe) 3 ml IVFLUSH QSHIFT [facility] Last Admin: 09/18/23 08:31 Dose: 3 ml Documented By: MEREDITH Tamsulosin HCl (Tamsulosin Hcl 0.4 Mg Capsule) 0.4 mg PO BEDTIME [facility] Last Admin: 09/17/23 22:44 Dose: 0.4 mg Documented By: ALVIN Labs 09/18/23 05:50 09/18/23 05:50 Labs: Laboratory Results - last 24 hr 09/18/23 05:50 MCV 93.0 MCH 30.9 MCHC 33.3 RDW 13.2 Plt Count 179 MPV 10.6 Absolute Nucleated RBC 0.000 Nucleated RBC % (auto) 0.0 Anion Gap 12 Estim Creat Clear Calc 93.6 Estimated GFR > 60 Random Glucose 118 H Calcium 9.1 Microbiology Microbiology Results: Microbiology 09/16/23 21:02 Blood Culture - Preliminary Blood - Venous No growth after 24 hours. 09/16/23 21:02 Blood Culture - Preliminary Blood - Venous No growth after 24 hours. Assessment and Plan (1) CHF exacerbation: Status: Acute (2) Pneumonia: Status: Acute Plan 78M PMH unspecified CHF, obesity, chronic hypoxic respiratory failure on 2L home oxygen, DVT/PE, permanent afib, HTN, bph, mood disorder presented with sob acute on chronic hpyoxic respiratory failure due to acute on chronic systolic acute on chronic systolic chf, overall better with IV Lasix, negative 1500 cc, echo ef 45%, continue IV Lasix for 1 more day, low dose lisinoril PNA/sepsis, continue Azithro and rocephin x 7 days, wbc down 23 to 11 obesity weight loss recommended DVT/PE history, eliquis permanent afib toprol, eliquis HTN amldoipine, toprol bph flomax, proscar mood disorder on cymbalta DNR/DNI need for inpt: Acute resp failure d/t heart failure and PNA and continue to need O2 Quality Stroke Does the patient have a stroke diagnosis?: No VTE Prior VTE?: Yes VTE Risk Level:: Medical - moderate - high VTE Device Contraindication: Treatment Not Indicated VTE Drug Contraindication: N/A - Med Ordered
[2023-09-18] MEDS: lisinopriL 2.5 MG TABLET PO (11:46)
[2023-09-18] MEDS: Tamsulosin HCL 0.4 MG CAPSULE PO (21:10)
[2023-09-18] MEDS: Azithromycin 500 MG TABLET PO (21:10)
[2023-09-18] MEDS: cefTRIAXone sodium 1 GM in 0.9 % Sodium Chloride 50 ML IV (21:13)
[2023-09-19 03:03] VITALS: BP 141/81; PULSE 85; RESP 21; TEMP 36.6; O2SAT 94
[2023-09-19 07:02] VITALS: BP 114/67; PULSE 84; RESP 18; TEMP 36.4; O2SAT 96
[2023-09-19 09:22] LABS: B Type Natriuretic Peptide 470 pg/mL (<100)
[2023-09-19 09:53] LABS: Anion Gap 16 (12-20); Blood Urea Nitrogen 19 mg/dL (9-16); Calcium 9.3 mg/dL (8.4-10.2); Carbon Dioxide 28 mmol/L (22-29); Chloride 101 mmol/L (96-108); Creatinine Clr Calc Pharmacy 92.5; Estimated Glomerular Filt Rate > 60; Glucose Random 109 mg/dL (60-115); Potassium 3.2 mmol/L (3.3-5.1); Sodium 142 mmol/L (135-145)
[2023-09-19] MEDS: Potassium Chloride Packet 20 MEQ PACKET PO (09:57)
[2023-09-19] MEDS: lisinopriL 2.5 MG TABLET PO (09:58)
[2023-09-19] MEDS: Omeprazole 20 MG CAPSULE.DR PO (09:58)
[2023-09-19] MEDS: amLODIPine Besylate 2.5 MG TABLET PO (09:58)
[2023-09-19] MEDS: Magnesium Oxide 400 MG TABLET 800 MG PO (09:58)
[2023-09-19] MEDS: DULoxetine HCl 60 MG CAPSULE.DR PO (09:58)
[2023-09-19] MEDS: Apixaban 5 MG TABLET PO ×2 (09:58→21:47)
[2023-09-19] MEDS: Metoprolol Succinate ER 50 MG TAB.ER.24H PO (09:58)
[2023-09-19] MEDS: 0.9 % Sodium Chloride Flush 3 ML SYRINGE IVFLUSH ×3 (09:59→21:48)
[2023-09-19] MEDS: Finasteride 5 MG TABLET PO (09:59)
--- NOTE | 2023-09-19 10:53 | P.CONCA_ITS ---
History of Present Illness History of Present Illness Date of Service: 09/19/23 Consult reason: congestive heart failure Chief complaint: CHF Narrative: I was consulted to see William in cardiology consultation today for CHF. Patient is not the greatest historian but is able to give me history reliably. Patient with prior history of congestive heart failure as per him, last admitted about 7-8 months ago at [facility] and follows with Cardiology group up there. Patient says since then he has not been feeling well. He does have continued exertional shortness of breath which about a 1 week ago got severely worse with progressive leg swelling and came to the hospital here and was noted to be in decompensated congestive heart failure. Patient's admission BNP was 609 which has improved to 470 but continues to have fluid overload. Patient echocardiogram done at bedside showed LVEF of 40-45%. He said he had ischemic workup at outside facility which was within normal limits. Prior to that he has never had a heart attack and was not aware of his LV ejection fraction as outpatient. Patient says compared to when he came in he feels a lot better but still not completely back to normal. Patient walks at home with the help of a walker. Has had a fall in the past but not officially says. He has prior history hypertension as well as paroxysmal atrial fibrillation. He is hemodynamically stable. Review of Systems 2 Constitutional: Constitutional: Reports no additional constitutional complaints Cardiovascular: Cardiovascular: Denies chest pain, Denies rapid heart rate, Reports leg edema, Denies lightheadedness, Denies Loss of Consciousness, Denies palpitations and Reports dyspnea on exertion Respiratory: Respiratory: Reports dyspnea on exertion Musculoskeletal: Musculoskeletal: Reports no additional musculoskeletal complaints Integumentary/Breasts: Skin/Breast: Reports system reviewed and no additional complaints, except as docu Neurologic: Reports system reviewed and no additional complaints, except as documented Psychiatric: Psychiatric: Reports no additional psychiatric complaints Endocrine: Endocrine: Denies palpitations [facility] Social History Social History Household Members: Spouse Household Members Other:: Kezia, . Housing: Other Housing Other:: [facility]assisted living. Do you presently have visiting nurse or other home services: Yes Patient Tobacco Use Status: Never used Tobacco service: No Meds Allergies Allergy/AdvReac Type Severity Reaction Status Date / Time No Known Allergies Allergy Verified 09/16/23 20:44 Active Medications: Current Medications Acetaminophen (Acetaminophen 325 Mg Tablet) 975 mg PO DAILY PRN PRN Reason: Pain, Moderate(Pain Scale 4-6) Amlodipine Besylate (Amlodipine Besylate 2.5 Mg Tablet) 2.5 mg PO DAILY [facility] BEDS AT [facility]; Protocol Last Admin: 09/19/23 09:58 Dose: 2.5 mg Apixaban (Apixaban 5 Mg Tablet) 5 mg PO BID [facility]S [facility]CLUDE 234 BEDS AT THE [facility] Last Admin: 09/19/23 09:58 Dose: 5 mg Azithromycin (Azithromycin 500 Mg Tablet) 500 mg PO BEDTIME [facility] Last Admin: 09/18/23 21:10 Dose: 500 mg Duloxetine HCl (Duloxetine Hcl 60 Mg Capsule.) 60 mg PO DAILY [facility]CLUDE 234 BEDS AT THE [facility] Last Admin: 09/19/23 09:58 Dose: 60 mg Finasteride (Finasteride 5 Mg Tablet) 5 mg PO DAILY [facility]CLUDE 234 BEDS AT [facility] Last Admin: 09/19/23 09:59 Dose: 5 mg Ceftriaxone Sodium 1 gm/ (Sodium Chloride) 50 mls @ 100 mls/hr IV BEDTIME [facility] Last Infusion: 09/18/23 21:45 Dose: Infused Furosemide 200 mg/ Sodium (Chloride) 100 mls @ 2.5 mls/hr IVCONT .Q24H COUNTS INCLUDE 234 BEDS AT THE [facility] Latanoprost (Latanoprost 0.005 % Ophth Mariza 2.5 Ml Drops) 1 drop EYE-RIGHT BEDTIME [facility]S [facility]CLUDE 234 BEDS AT [facility] Last Admin: 09/18/23 21:13 Dose: Not Given Lisinopril (Lisinopril 2.5 Mg Tablet) 2.5 mg PO DAILY [facility]CLUDE 234 BEDS AT [facility]; Protocol Last Admin: 09/19/23 09:58 Dose: 2.5 mg Magnesium Oxide (Magnesium Oxide 400 Mg Tablet) 800 mg PO DAILY [facility]CLUDE 234 BEDS AT THE [facility] Last Admin: 09/19/23 09:58 Dose: 800 mg Metoprolol Succinate (Metoprolol Succinate Er 50 Mg Tab.Er.24h) 50 mg PO DAILY [facility] 234 BEDS AT [facility]; Protocol Last Admin: 09/19/23 09:58 Dose: 50 mg Omeprazole (Omeprazole 20 Mg Capsule.Dr) 20 mg PO DAILY [facility] 234 BEDS AT [facility] Last Admin: 09/19/23 09:58 Dose: 20 mg Sodium Chloride (0.9 % Sodium Chloride Flush 3 Ml Syringe) 3 ml IVFLUSH QSHIFT COUNTS [facility]CLUDE 234 BEDS AT THE [facility] Last Admin: 09/19/23 09:59 Dose: 3 ml Tamsulosin HCl (Tamsulosin Hcl 0.4 Mg Capsule) 0.4 mg PO BEDTIME [facility] Last Admin: 09/18/23 21:10 Dose: 0.4 mg Home Medications Medication Instructions Recorded Confirmed Last Taken Type acetaminophen 325 mg tablet 1,000 mg PO DAILY 09/17/23 09/17/23 Unknown History amlodipine 2.5 mg tablet 2.5 mg PO DAILY 09/17/23 09/17/23 09/16/23 History apixaban 5 mg tablet 5 mg PO BID 09/17/23 09/17/23 Unknown History duloxetine 60 mg capsule,delayed 60 mg PO DAILY 09/17/23 09/17/23 Unknown History release finasteride 5 mg tablet 5 mg PO DAILY 09/17/23 09/17/23 Unknown History furosemide 40 mg tablet 40 mg PO DAILY 09/17/23 09/17/23 Unknown History ketoconazole 2 % shampoo 1 appl topical MOTH PRN dandruff 09/17/23 09/17/23 Unknown History latanoprost 0.005 % eye drops 1 drp ophthalmic-Right QPM 09/17/23 09/17/23 Unknown History metoprolol succinate 50 mg 50 mg PO DAILY 09/17/23 09/17/23 Unknown History tablet,extended release 24 hr omeprazole 20 mg capsule,delayed 20 mg PO DAILY 09/17/23 09/17/23 Unknown History release tamsulosin 0.4 mg capsule 0.4 mg PO BEDTIME 09/17/23 09/17/23 Unknown History vibegron 75 mg tablet (Gemtesa) 75 mg PO DAILY 09/17/23 09/17/23 Unknown History vitamin A-vitamin C-vit E-min 1 tab PO DAILY 09/17/23 09/17/23 Unknown History tablet Physical Exam 2 Vital Signs: Vital Signs: Last Vital Signs Temp 97.6 F 09/19/23 07:02 Pulse 84 09/19/23 07:02 Resp 18 09/19/23 07:02 BP 114/67 09/19/23 07:02 Pulse Ox 96 09/19/23 07:02 O2 Del Method Nasal Cannula 09/19/23 07:02 O2 Flow Rate 2 09/19/23 07:02 BMI result Body Mass Index 35.9 Const: General: cooperative and in distress mild and respiratory N utritional Appearance: obese Orientation/consciousness: patient oriented x3 HEENT: Head: Yes normocephalic and Yes atraumatic Neck: Neck: Yes trachea midline, Yes supple and Yes JVD Resp: Effort & Inspection: normal respiratory effort Auscultation: rales bilateral Cardio: Jugular venous distension: JVD Rate: regular rate Rhythm: r egular rhythm Heart sounds: S1 normal heart sound present, S2 normal heart sound present, no click, no gallops, Murmur heart sound present systolic and Other heart sounds present (S4 present) Skin: General skin exam: no rashes or lesions noted Neuro: General: patient oriented x3 and no focal motor deficits Extrem: General: No clubbing, No cyanosis and Yes edema Objective Labs and Meds 09/18/23 05:50 09/19/23 08:40 Lab results: Laboratory Results - last 24 hr 09/19/23 08:40 Sodium 142 Potassium 3.2 L Chloride 101 Carbon Dioxide 28 Anion Gap 16 BUN 19 H Creatinine 0.89 Estim Creat Clear Calc 92.5 Estimated GFR > 60 Random Glucose 109 Calcium 9.3 B-Natriuretic Peptide 470 H Conclusions: - 1. [id number] LV systolic dysfunction with LVEF of 40-45% with severe left ventricular hypertrophy and at least grade 2 diastolic dysfunction 2. Mild left atrial enlargement 3. Calcific aortic valve and mitral annular calcification noted with no significant abnormality of cardiac valvular Dopplers 4. Mildly dilated ascending aorta at 3.9 cm 5. Normal RV systolic pressure 6. No gross pericardial effusion EKG shows normal sinus rhythm with PVCs with intraventricular conduction delay Assessment and Plan (1) CHF exacerbation: Status: Acute Decompensated congestive heart failure in this elderly gentleman with [id number] LV systolic dysfunction with severe LVH and grade 2 diastolic dysfunction. Likelihood of infiltrative disorder such as amyloidosis should be considered and workup as an outpatient. Also ischemic heart disease needs to be ruled out. Will try to obtain old records. Clinically still appears to be fluid overloaded in heart failure. Continue diuresis with Lasix and switch to IV Lasix drip at 5 mg an hour. Strict intake and output chart needs to be pursued. Add Jardiance 10 mg to his regimen. Switch lisinopril to valsartan therapy with eventual plan to switch to Entresto therapy. Stop amlodipine therapy. Continue metoprolol therapy for neurohormonal modulation. Patient does have prior history of atrial fibrillation, currently sinus rhythm. Continue full oral anticoagulation with Entresto. Also having runs of nonsustained VT, continue full disclosure cardiac telemetry as well as continue metoprolol therapy. Check electrolytes and replace as needed. Continue to monitor renal function. Will continue to follow with you Procedures Date of Service Date of Service: 09/19/23
[2023-09-19 10:57] VITALS: BP 119/76; PULSE 80; RESP 20; TEMP 36.4; O2SAT 93
[2023-09-19] MEDS: Furosemide 200 MG in 0.9 % Sodium Chloride 80 ML IVCONT (11:08)
[2023-09-19] MEDS: Empagliflozin 10 MG TABLET PO (11:09)
--- NOTE | 2023-09-19 11:43 | P.PNIM_ITS ---
Subjective Subjective Date of Service: 09/19/23 Interval History: chf excerebation Review of Systems sob with minimal excersion,has leg edema Physical Exam 2 Vital Signs: Vital Signs: Last Vital Signs Temp 97.5 F 09/19/23 10:57 Pulse 80 09/19/23 10:57 Resp 20 09/19/23 10:57 BP 119/76 09/19/23 10:57 Pulse Ox 93 09/19/23 10:57 O2 Del Method Nasal Cannula 09/19/23 10:57 O2 Flow Rate 3 09/19/23 10:57 BMI result Body Mass Index 35.9 General: AO X 3, no acute distress Resp: rales at bases CVS: S1,S2,RRR,has jvd GI: +BS, NT, no distention Skin: No rash,2+ pedal edema Neuro: motor grossly intact Psych: appropriate affect Objective Data Active Medications Acetaminophen (Acetaminophen 325 Mg Tablet) 975 mg PO DAILY PRN PRN Reason: Pain, Moderate(Pain Scale 4-6) Apixaban (Apixaban 5 Mg Tablet) 5 mg PO BID [facility] Last Admin: 09/19/23 09:58 Dose: 5 mg Documented By: MEREDITH Azithromycin (Azithromycin 500 Mg Tablet) 500 mg PO BEDTIME [facility] Last Admin: 09/18/23 21:10 Dose: 500 mg Documented By: ALVIN Duloxetine HCl (Duloxetine Hcl 60 Mg Capsule.Dr) 60 mg PO DAILY [facility] Last Admin: 09/19/23 09:58 Dose: 60 mg Documented By: MEREDITH Empagliflozin (Empagliflozin 10 Mg Tablet) 10 mg PO DAILY [facility] Last Admin: 09/19/23 11:09 Dose: 10 mg Documented By: MEREDITH Finasteride (Finasteride 5 Mg Tablet) 5 mg PO DAILY [facility] Last Admin: 09/19/23 09:59 Dose: 5 mg Documented By: MEREDITH Ceftriaxone Sodium 1 gm/ (Sodium Chloride) 50 mls @ 100 mls/hr IV BEDTIME [facility] Last Infusion: 09/18/23 21:45 Dose: Infused Documented By: ALVIN Furosemide 200 mg/ Sodium (Chloride) 100 mls @ 2.5 mls/hr IVCONT .Q24H [facility] Last Admin: 09/19/23 11:08 Dose: 5 mg/hr, 2.5 mls/hr Documented By: MEREDITH Latanoprost (Latanoprost 0.005 % Ophth Mariza 2.5 Ml Drops) 1 drop EYE-RIGHT BEDTIME [facility] Last Admin: 09/18/23 21:13 Dose: Not Given Documented By: ALVIN Non-Admin Reason: Med Not Available Magnesium Oxide (Magnesium Oxide 400 Mg Tablet) 800 mg PO DAILY [facility] Last Admin: 09/19/23 09:58 Dose: 800 mg Documented By: MEREDITH Metoprolol Succinate (Metoprolol Succinate Er 50 Mg Tab.Er.24h) 50 mg PO DAILY [facility]; Protocol Last Admin: 09/19/23 09:58 Dose: 50 mg Documented By: MEREDITH Omeprazole (Omeprazole 20 Mg Capsule.Dr) 20 mg PO DAILY [facility] Last Admin: 09/19/23 09:58 Dose: 20 mg Documented By: MEREDITH Sodium Chloride (0.9 % Sodium Chloride Flush 3 Ml Syringe) 3 ml IVFLUSH QSHIFT [facility] Last Admin: 09/19/23 09:59 Dose: 3 ml Documented By: MEREDITH Tamsulosin HCl (Tamsulosin Hcl 0.4 Mg Capsule) 0.4 mg PO BEDTIME [facility] Last Admin: 09/18/23 21:10 Dose: 0.4 mg Documented By: ALVIN Valsartan (Valsartan 40 Mg Tablet) 40 mg PO BID [facility]; Protocol Labs 09/18/23 05:50 09/19/23 08:40 Labs: Laboratory Results - last 24 hr 09/19/23 08:40 Anion Gap 16 Estim Creat Clear Calc 92.5 Estimated GFR > 60 Random Glucose 109 Calcium 9.3 B-Natriuretic Peptide 470 H Microbiology Microbiology Results: Microbiology 09/16/23 21:02 Blood Culture - Preliminary Blood - Venous No growth after 48 hours. 09/16/23 21:02 Blood Culture - Preliminary Blood - Venous No growth after 48 hours. Assessment and Plan (1) Pneumonia: Status: Acute (2) CHF exacerbation: Status: Acute Plan 78M PMH unspecified CHF, obesity, chronic hypoxic respiratory failure on 2L home oxygen, DVT/PE, permanent afib, HTN, bph, mood disorder presented with sob acute on chronic hpyoxic respiratory failure due to acute on chronic systolic acute on chronic systolic chf: Seems still fluid overloaded, short of breath with minimal exertion sob seems simialr to yesterday moniter i/o daily weight, negative 2,8 00 cc, echo ef 45%, added lasix dip ,added valsartan (may need entersto later),stop amlodipine ,moniter renal function/electrolytes. hypokalemia : repleted . moniter bmp PNA/sepsis, continue Azithro and rocephin x 7 days, wbc down 23 to 11 blood cultures neg 48hrs obesity weight loss recommended DVT/PE history, eliquis permanent afib toprol, eliquis HTN amldoipine, toprol bph flomax, proscar mood disorder on cymbalta DNR/DNI need for inpt: Acute resp failure d/t heart failure and PNA and continue to need O2,iv antibiotics ,iv lasix , renal function and electrolyte monitoring, respiratory status is not optimally at. Quality Stroke Does the patient have a stroke diagnosis?: No VTE Prior VTE?: Yes VTE Risk Level:: Medical - moderate - high VTE Device Contraindication: Treatment Not Indicated VTE Drug Contraindication: N/A - Med Ordered
[2023-09-19 15:20] VITALS: BP 138/67; PULSE 69; RESP 15; TEMP 36.4; O2SAT 97
[2023-09-19 19:00] VITALS: BP 135/69; PULSE 70; RESP 16; TEMP 36.9; O2SAT 94
[2023-09-19] MEDS: Valsartan 40 MG TABLET PO (21:47)
[2023-09-19] MEDS: Tamsulosin HCL 0.4 MG CAPSULE PO (21:47)
[2023-09-19] MEDS: Azithromycin 500 MG TABLET PO (21:47)
[2023-09-19] MEDS: cefTRIAXone sodium 1 GM in 0.9 % Sodium Chloride 50 ML IV (21:48)
[2023-09-19 23:30] VITALS: BP 127/80; PULSE 65; RESP 20; TEMP 36.7; O2SAT 96
[2023-09-20 04:00] VITALS: BP 124/75; PULSE 70; RESP 18; TEMP 36.6; O2SAT 95
[2023-09-20 06:58] VITALS: BP 141/67; PULSE 73; RESP 18; TEMP 36.5; O2SAT 96
[2023-09-20] MEDS: Apixaban 5 MG TABLET PO (07:39)
[2023-09-20] MEDS: Omeprazole 20 MG CAPSULE.DR PO (07:39)
[2023-09-20] MEDS: 0.9 % Sodium Chloride Flush 3 ML SYRINGE IVFLUSH ×2 (07:39→14:37)
[2023-09-20] MEDS: DULoxetine HCl 60 MG CAPSULE.DR PO (07:39)
[2023-09-20] MEDS: Empagliflozin 10 MG TABLET PO (07:39)
[2023-09-20] MEDS: Valsartan 40 MG TABLET PO ×2 (07:39→09:10)
[2023-09-20] MEDS: Metoprolol Succinate ER 50 MG TAB.ER.24H PO (07:39)
[2023-09-20] MEDS: Finasteride 5 MG TABLET PO (07:40)
[2023-09-20] MEDS: Magnesium Oxide 400 MG TABLET 800 MG PO (07:40)
[2023-09-20 08:44] LABS: Anion Gap 15 (12-20); Blood Urea Nitrogen 20 mg/dL (9-16); Calcium 9.2 mg/dL (8.4-10.2); Carbon Dioxide 32 mmol/L (22-29); Chloride 98 mmol/L (96-108); Creatinine Clr Calc Pharmacy 82.4; Estimated Glomerular Filt Rate > 60; Glucose Random 94 mg/dL (60-115); Sodium 142 mmol/L (135-145)
[2023-09-20 08:48] LABS: B Type Natriuretic Peptide 365 pg/mL (<100)
[2023-09-20] MEDS: Furosemide 40 MG TABLET PO (09:10)
[2023-09-20] MEDS: Potassium Chloride Packet 20 MEQ PACKET 40 MEQ PO (09:10)
--- NOTE | 2023-09-20 09:54 | PM.PNCARD ---
Subjective Subjective Date of Service: 09/20/23 Interval history: Patient states he is feeling much better. Shortness of breath significantly improved. Review of Systems Review of Systems Yes all other systems are reviewed and are negative Constitutional: Reports as per HPI and Reports no additional constitutional complaints Eyes: Reports as per HPI and Denies no additional eye complaints Denies system reviewed and no additional complaints, except as documented and Reports as per HPI Cardiovascular: Reports as per HPI, Reports no additional cardiovascular complaints, Denies acrocyanosis, Denies cool extremities, Denies chest pain, Denies leg edema, Denies lightheadedness, Denies palpitations and Denies dyspnea Respiratory: Reports as per HPI, Denies no additional respiratory complaints and Denies dyspnea Gastrointestinal: Reports as per HPI and Denies no additional gastrointestinal complaints Genitourinary: Reports no additional male genitourinary complaints and Reports as per HPI Musculoskeletal: Reports no additional musculoskeletal complaints and Reports as per HPI Skin/Breast: Reports system reviewed and no additional complaints, except as docu Reports system reviewed and no additional complaints, except as documented and Reports as per HPI Psychiatric: Reports no additional psychiatric complaints and Reports as per HPI Endocrine: Reports no additional endocrine complaints, Reports as per HPI and Denies palpitations Hematologic/Lymphatic: Reports no additional hematologic/lymphatic complaints and Reports as per HPI Allergic/Immunologic: Reports no additional allergic/immunologic complaints and Reports as per HPI Physical Exam Vital Signs: Last Vital Signs Temp 97.7 F 09/20/23 06:58 Pulse 73 09/20/23 06:58 Resp 18 09/20/23 06:58 BP 141/67 H 09/20/23 06:58 Pulse Ox 96 09/20/23 06:58 O2 Del Method Nasal Cannula 09/20/23 06:58 O2 Flow Rate 2 09/20/23 04:00 BMI result Body Mass Index 35.9 Const General: comfortable and no acute distress Orientation/consciousness: patient oriented x3 HEENT Other: Unremarkable Head: Yes normal to inspection Neck Neck: Yes normal visual inspection Chest Chest palpation & inspection: normal inspection of the chest Resp Other: Minimal basal crackles Cardio Palpation: normal PMI Heart sounds: S1 normal heart sound present, S2 normal heart sound present, no gallops, no murmurs and no rubs GI Palpation (GI): Soft to palpation Back/Spine/Pelvis Other: unremarkable Skin General skin exam: no rashes or lesions noted Neuro General: patient oriented x3 Extrem Other: Trace edema General: Yes normal to inspection Psych Mental Status: mental status grossly normal Objective Labs and Meds 09/18/23 05:50 09/20/23 06:37 Lab results: Laboratory Results - last 24 hr 09/20/23 06:37 Hold Purple Top SEE NOTE Sodium 142 Potassium 3.0 L Chloride 98 Carbon Dioxide 32 H Anion Gap 15 BUN 20 H Creatinine 1.00 Estim Creat Clear Calc 82.4 Estimated GFR > 60 Random Glucose 94 Calcium 9.2 B-Natriuretic Peptide 365 H Progress Note: A&P Assessment and plan (1) Acute on chronic systolic and diastolic heart failure, NYHA class 3: Status: Acute Plan In the recent echocardiogram, LVEF 40-45%. Wall motion abnormalities not adequately evaluated. Grade 2 diastolic dysfunction with increased filling pressures. Mild left atrial enlargement. Aortic/mitral annular calcifications. He is being treated for congestive heart failure and has diuresed almost 6 L so far. Cardiac BNP upon arrival 609. Currently 365. Clinically, not much volume overload. Try to wean off oxygen. Ambulate. Oral diuretics. Correct electrolytes. Ambulate and see how he does. Discharge planning. Discussed with Dr. Flores. Time Spent With Patient Time: Total time managing care of this patient today 40 minutes. This includes time spent in review of chart, laboratory data, imaging studies, review of telemetry, counseling patient, discussion with hospitalist, RN, documentation, coordination of care. Progress Note: Quality Stroke Does the patient have a stroke diagnosis?: No Procedures Date of Service Date of Service: 09/20/23
--- NOTE | 2023-09-20 10:33 | MHC.CM.PN ---
CM MET WITH PT TO DISCUSS DC PLAN PT IS AWARE HE WILL LIKELY BE CLEARED TO DC TODAY AND IS AGREEABLE TO [facility] HE REPORTS HIS PHYSICAL ADDRESS IS [address] [place] [address] [place] [address] HIS PHONE NUMBER IS [phone] HE IS AWARE THE [facility] WILL CALL HIM BEFORE COMING TO HIS HOME PTS ADDRESS AND PHONE NUMBER WERE REL[facility]ED TO [facility] [employer] ALONG WITH NOTICE OF EXPECTED DC TODAY PT HAS HIS OWN TRANSPORTATION
[2023-09-20 11:10] VITALS: BP 122/66; PULSE 73; RESP 18; TEMP 36.6; O2SAT 94
[2023-09-20] MEDS: Potassium Chloride ER 20 MEQ TAB.ER.PRT PO (12:20)
[2023-09-20 13:32] VITALS: PULSE 79; PULSE 84; O2SAT 79; O2SAT 86; O2SAT 91; O2SAT 92
--- NOTE | 2023-09-20 14:51 | PM.DS ---
DS: Providers Provider Date of Service: 09/20/23 Date of admission: 09/16/23 23:37 Date of discharge: 09/20/23 Primary care physician: Cheyenne Aragon MD Consults: 09/19/23 08:19 Consult to Cardiology Routine Consulting Provider: [facility] Reason for consultation: Chf /nsvt Has provider been notified: No Attending physician on discharge: Gaurav Flores Discharging clinician: Gaurav Flores DS: Diagnosis Discharge Diagnosis (1) Acute on chronic systolic and diastolic heart failure, NYHA class 3: Status: Acute DS: Summary Hospital Course Hospital Course: 78M PMH unspecified CHF, obesity, chronic hypoxic respiratory failure on 2L home oxygen, DVT/PE, permanent afib, HTN, bph, mood disorder, presented with sob. patient reports about 1 week of increased edema and sob. on day of presentation became severe hypoxic and dyspneic, called EMS, patient was saturating in low 80s on 6L, switched to bipap. was in severe respiratory distress in ED, imaging consistent with chf, with question of left basilar penumonia. placed on cpap and given diuretics and nitropaste with significant improvement. Hospital course: Patient was admitted for acute on chronic hypoxemic respiratory failure secondary to acute on chronic systolic heart failure,, pneumonia: Started on IV Lasix drip, diuresed well, 6 L negative: His shortness of breath, BNP seems to be improved significantly. In addition patient received IV antibiotics for pneumonia, blood culture negative@48hrs , no fever, shortness of breath also study improved. Hypokalemia: Repleted, also given limited supply for home. Monitor BMP. Patient will be going home with p.o. antibiotics and Lasix, valsartan added for cardiology may need to switch to Entresto outpatient. plan: Continue Lasix and antibiotics(Ceftin 500 mg p.o. b.i.d. for 7 days and azithromycin 500 mg daily for 6 days.] Please repeat chest imaging in 3-4 weeks to see resolution of pneumonia. moniter bmp closely . Discussed with respiratory patient already has home oxygen at home-continue to use that. Above management discussed the patient detail length he understand and in agreement with the above plan, time spent 50 minute. Time Attestation Discharge coordination time: Greater than 30 minutes Quality: Safe Use of Opioids Does Pt have an Active Cancer Diagnosis on the Problem List?: No Quality: Stroke Does the patient have a stroke diagnosis?: No Physical Exam Vital Signs: Vital Signs: Last Vital Signs Temp 97.9 F 09/20/23 11:10 Pulse 73 09/20/23 11:10 Resp 18 09/20/23 11:10 BP 122/66 09/20/23 11:10 Pulse Ox 94 09/20/23 11:10 O2 Del Method Nasal Cannula 09/20/23 11:10 O2 Flow Rate 2 09/20/23 04:00 BMI result Body Mass Index 35.9 General: AO X 3, no acute distress Resp: clear lungs , no rales or wheezing CVS: S1,S2,RRR. GI: +BS, NT, no distention Skin: No rash,trace edema Neuro: motor grossly intact Psych: appropriate affect DS: Data Data Completed and Pending Labs on day of discharge: Laboratory Results - last 24 hr 09/20/23 06:37 Hold Purple Top SEE NOTE Sodium 142 Potassium 3.0 L Chloride 98 Carbon Dioxide 32 H Anion Gap 15 BUN 20 H Creatinine 1.00 Estim Creat Clear Calc 82.4 Estimated GFR > 60 Random Glucose 94 Calcium 9.2 B-Natriuretic Peptide 365 H Preliminary micro results at discharge 09/16/23 21:02 Blood Culture - Preliminary Blood - Venous No growth after 48 hours. 09/16/23 21:02 Blood Culture - Preliminary Blood - Venous No growth after 48 hours. Imaging Chest x-ray: Radiologist's impression: ITS Impressions Chest X-Ray 09/16/23 21:08 IMPRESSION: 1. Cardiomegaly with mild CHF. 2. Patchy opacity left lung base likely infiltrate or compressive atelectasis. Discharge Plan Discharge Anticipated Discharge Date/Time: 09/20/23 09:56 Patient Disposition: Home, Self-Care Discharge Diagnosis: pneumonia,chf ,hypokalemia Referrals: Vikas ROSE [Outside] Physician,Unknown J [Physician] - 1 Week Discharge Medications: New cefuroxime axetil 500 mg tablet 500 mg PO BID Qty: 14 0RF azithromycin 500 mg tablet 500 mg PO DAILY 6 Days Qty: 6 0RF potassium chloride 10 mEq capsule, extended release 10 meq PO DAILY Qty: 7 0RF Continued amlodipine 2.5 mg Tablet 2.5 mg PO DAILY tamsulosin 0.4 mg Capsule 0.4 mg PO BEDTIME omeprazole 20 mg Capsule,Delayed Release(Dr/Ec) 20 mg PO DAILY Gemtesa 75 mg Tablet 75 mg PO DAILY furosemide 40 mg Tablet 40 mg PO DAILY latanoprost 0.005 % Drops 1 drp ophthalmic-Right QPM metoprolol succinate 50 mg Tablet Extended Release 24 Hr 50 mg PO DAILY finasteride 5 mg Tablet 5 mg PO DAILY duloxetine 60 mg Capsule,Delayed Release(Dr/Ec) 60 mg PO DAILY apixaban 5 mg Tablet 5 mg PO BID acetaminophen 325 mg Tablet 1,000 mg PO DAILY Ocuvite Tablet 1 tab PO DAILY ketoconazole 2 % Shampoo 1 appl TOPICAL MOTH PRN (Reason: dandruff) Discharge Orders: Discharge Order (Routine); Ordered 09/20/23 Ordered By: Gaurav Flores Diet: Advance to usual diet Activity on Discharge: As tolerated Stand Alone Forms: Patient Portal Discharge page Care Plan Goals: Patient was admitted for acute on chronic hypoxemic respiratory failure secondary to acute on chronic systolic heart failure,, pneumonia: Started on IV Lasix drip, diuresed well, 6 L negative: His shortness of breath, BNP seems to be improved significantly. In addition patient received IV antibiotics for pneumonia, blood culture negative@48hrs , no fever, shortness of breath also study improved. Hypokalemia: Repleted, also given limited supply for home. Monitor BMP. Patient will be going home with p.o. antibiotics and Lasix, valsartan added for cardiology may need to switch to Entresto outpatient. Health Concerns: As above. Plan of Treatment: Continue Lasix and antibiotics(Ceftin 500 mg p.o. b.i.d. for 7 days and azithromycin 500 mg daily for 6 days.] Please repeat chest imaging in 3-4 weeks to see resolution of pneumonia. moniter bmp closely . Assessment: as above.
[2023-09-20] MEDS: cefuroxime axetiL 500 MG TABLET PO (15:03)
[2023-09-20] MEDS: Azithromycin 500 MG TABLET PO (15:03)
--- NOTE | 2023-09-21 10:16 | W.MHC.F2F ---
Service Date Service Date: 09/21/23 Encounter Date of encounter: 09/20/23 Encounter: chf Reasons for Services Signs and symptoms assessed: new sob or fever or cough Reason for penitentiary: medication management, medication treatment and teach disease management MD Overseeing Care: Cheyenne Aragon Homebound: Leaving the home is medically contraindicated at this time without the asist of a device and/or another person due th the listed conditions above and below. Reason homebound: weakness related to hospital stay Homebound supporting statement: Patient generalized weak had multiple comorbidities including CHF-need help with CHF management, appointments, blood draws. Certification: Based on the above findings, I certify that this patient is confined to the home and needs intermittent penitentiary care, physical therapy and/or speech therapy, or continues to need occupational therapy. The patient is under my care, and I have initiated the establishment of the plan of care. The patient will be followed by a physician who will periodically review the plan of care. Time Spent With Patient Time: Total time managing care of this patient today ____ minutes.
== END 2023-09-20 15:40 | disposition home health service (06) | DRG 871 ==
LOC: HO.ED 23:42 → HO.EDOVER 23:45 → HO.IMC 09-17 19:38
PROVIDERS: Internal Medicine; Admitting Provider Internal Medicine; Emergency Provider Emergency Medicine; PCP Family Medicine; Visit Provider Internal Medicine
DX: A41.9 Sepsis, unspecified organism (principal); I50.43 Acute on chronic combined systolic (congestive) and diastolic (congestive) heart failure; J18.9 Pneumonia, unspecified organism; J96.21 Acute and chronic respiratory failure with hypoxia; I48.21 Permanent atrial fibrillation; Z66 Do not resuscitate; N40.0 Benign prostatic hyperplasia without lower urinary tract symptoms; F39 Unspecified mood [affective] disorder; I11.0 Hypertensive heart disease with heart failure; Z68.35 Body mass index [BMI] 35.0-35.9, adult; E66.9 Obesity, unspecified; Z20.822 Contact with and (suspected) exposure to COVID-19; Z71.3 Dietary counseling and surveillance; Z86.718 Personal history of other venous thrombosis and embolism; Z86.711 Personal history of pulmonary embolism; Z99.81 Dependence on supplemental oxygen; Z79.01 Long term (current) use of anticoagulants; Z79.899 Other long term (current) drug therapy
CPT/HCPCS: 0241U; 36415; 71045; 80048; 80076; 83605; 83735; 83880; 84484; 85025; 85027; 87040; 87635; 93005; 93306; 99285; J0696; J1940; Q9957

== ENCOUNTER → 2023-09-16 20:45 | Outpatient (BNV) | payer MEDICARE, SELFPAY | PROVIDERS: Admitting Provider Internal Medicine; Emergency Provider Emergency Medicine; Visit Provider Internal Medicine Cardiovascular Disease | DX: I49.3 Ventricular premature depolarization (principal); R94.31 Abnormal electrocardiogram [ECG] [EKG] | CPT/HCPCS: 93010 ==

== ENCOUNTER 2023-09-16 23:37 | Outpatient (BNV) | payer MEDICARE, SELFPAY | END 2023-09-17 07:00 | PROVIDERS: Admitting Provider Internal Medicine; Emergency Provider Emergency Medicine; Visit Provider Internal Medicine Cardiovascular Disease | DX: I34.81 Nonrheumatic mitral (valve) annulus calcification (principal); I35.8 Other nonrheumatic aortic valve disorders | CPT/HCPCS: 93306 ==

== ENCOUNTER → 2023-09-16 23:37 | Outpatient (BNV) | payer MEDICARE, SELFPAY | PROVIDERS: Admitting Provider Internal Medicine; Emergency Provider Emergency Medicine; Visit Provider Internal Medicine | DX: I50.9 Heart failure, unspecified (principal); J18.9 Pneumonia, unspecified organism | CPT/HCPCS: 99223; 99232; 99233; 99239; G0180 ==

== ENCOUNTER → 2023-09-16 23:37 | Outpatient (BNV) | payer MEDICARE, SELFPAY | PROVIDERS: Admitting Provider Internal Medicine; Emergency Provider Emergency Medicine; Visit Provider Internal Medicine Cardiovascular Disease | DX: I50.43 Acute on chronic combined systolic (congestive) and diastolic (congestive) heart failure (principal) | CPT/HCPCS: 99222; 99233 ==

== ENCOUNTER 2023-09-28 10:30 | Outpatient (REF) | payer MEDICARE, SELFPAY ==
[2023-09-28 16:32] LABS: Anion Gap 14 (12-20); Blood Urea Nitrogen 17 mg/dL (9-16); Calcium 8.9 mg/dL (8.4-10.2); Carbon Dioxide 29 mmol/L (22-29); Chloride 101 mmol/L (96-108); Estimated Glomerular Filt Rate > 60; Glucose Random 129 mg/dL (60-115); Potassium 4.9 mmol/L (3.3-5.1); Sodium 139 mmol/L (135-145)
== END 2023-09-28 10:31 | disposition home or self-care (01) ==
LOC: HO.HVNA 10:30
PROVIDERS: Visit Provider Internal Medicine
DX: I50.9 Heart failure, unspecified (principal)
CPT/HCPCS: 36415; 80048

== ENCOUNTER 2023-10-01 13:55 | Outpatient (REF) | payer MEDICARE, SELFPAY ==
[2023-10-01 16:45] LABS: Anion Gap 16 (12-20); Blood Urea Nitrogen 14 mg/dL (9-16); Calcium 9.6 mg/dL (8.4-10.2); Carbon Dioxide 29 mmol/L (22-29); Chloride 100 mmol/L (96-108); Estimated Glomerular Filt Rate > 60; Glucose Random 95 mg/dL (60-115); Potassium 3.9 mmol/L (3.3-5.1); Sodium 141 mmol/L (135-145)
== END 2023-10-01 13:56 | disposition home or self-care (01) ==
LOC: HO.HMGCLDS 13:55
PROVIDERS: PCP Family Medicine; Visit Provider Internal Medicine
DX: I50.9 Heart failure, unspecified (principal)
CPT/HCPCS: 36415; 80048

== ENCOUNTER 2023-11-15 09:25 | Inpatient (IN) | payer MEDICARE, SELFPAY ==
--- NOTE | ~2023-11-15 | XR_ITS ---
EXAMINATION: XR CHEST CLINICAL INFORMATION: Dyspnea COMPARISON: Chest radiograph from 09/16/2023 TECHNIQUE: Single view of the chest was obtained. FINDINGS: Redemonstration of patchy radiopacities throughout the bilateral lung aggarwal. Blunting of the left costophrenic recess which may reflect a small pleural effusion versus scarring. Accentuation of pulmonary vasculature. Flattening the bilateral hemidiaphragms. No pneumothorax. Trachea is midline. Cardiac mediastinal silhouette is enlarged. Aorta demonstrates atherosclerotic calcifications. Osseous structures are intact. Soft tissues are unremarkable. XR/XR chest 1V IMPRESSION: 1. Redemonstration of patchy radiopacities throughout the bilateral lung aggarwal. 2. Blunting of the left costophrenic recess which may reflect a small pleural effusion versus scarring. 3. Accentuation of pulmonary vasculature. 4. Flattening the bilateral hemidiaphragms.
--- NOTE | 2023-11-15 09:29 | ED.SOB ---
HPI - SOB/Dyspnea General Chief Complaint: Dyspnea Stated Complaint: SOB 96% 6LPM PER EMS Time Seen by Provider: 11/15/23 09:27 Source: patient, EMS and old records reviewed Mode of arrival: EMS Limitations: no limitations History of Present Illness HPI Narrative: 78 yo male with PMH of CHF on lasix, obesity, chronic respiratory failure on 2L home O2, DVT/PE on eliquis, afib, HTN, BPH, mood disorder just admitted here start of September for CHF on lasix drip and LLL pneumonia treated with ceftin and azithromycin. He comes in today with c/o orthopnea, ankle swelling, increased dyspnea and felt his oxygen was low so he increased his normal 2 to 3L to 6L at home EMS found him to be 79% on his O2 initially and they switched him to their NC. He couldn't sleep last night as he could not lay flat. No change in medications, no fever, no productive cough. He admits to eating a salty [place] duck meal for dinner. MD elicited complaint: shortness of breath Pertinent past history: congestive heart failure Onset (ago): day(s) (last night before bed) Context: other (increased salt for dinner) Timing: constant Severity: moderate Exacerbating factors: lying flat Relieving factors: oxygen and upright position Known history of: congestive heart failure Associated symptoms: orthopnea Treatment prior to arrival: oxygen Related Data Home Medications Medication Instructions Recorded Confirmed acetaminophen 325 mg tablet 1,000 mg PO DAILY 09/17/23 09/17/23 amlodipine 2.5 mg tablet 2.5 mg PO DAILY 09/17/23 09/17/23 apixaban 5 mg tablet 5 mg PO BID 09/17/23 09/17/23 duloxetine 60 mg capsule,delayed 60 mg PO DAILY 09/17/23 09/17/23 release finasteride 5 mg tablet 5 mg PO DAILY 09/17/23 09/17/23 furosemide 40 mg tablet 40 mg PO DAILY 09/17/23 09/17/23 ketoconazole 2 % shampoo 1 appl topical MOTH PRN dandruff 09/17/23 09/17/23 latanoprost 0.005 % eye drops 1 drp ophthalmic-Right QPM 09/17/23 09/17/23 metoprolol succinate 50 mg 50 mg PO DAILY 09/17/23 09/17/23 tablet,extended release 24 hr omeprazole 20 mg capsule,delayed 20 mg PO DAILY 09/17/23 09/17/23 release tamsulosin 0.4 mg capsule 0.4 mg PO BEDTIME 09/17/23 09/17/23 vibegron 75 mg tablet (Gemtesa) 75 mg PO DAILY 09/17/23 09/17/23 vitamin A-vitamin C-vit E-min 1 tab PO DAILY 09/17/23 09/17/23 tablet Previous Rx's Medication Instructions Recorded azithromycin 500 mg tablet 500 mg PO DAILY 6 days #6 tabs 09/20/23 cefuroxime axetil 500 mg tablet 500 mg PO BID #14 tabs 09/20/23 potassium chloride 10 mEq 10 meq PO DAILY #7 caps 09/20/23 capsule,extended release Allergies Allergy/AdvReac Type Severity Reaction Status Date / Time No Known Allergies Allergy Verified 11/15/23 09:50 Review of Systems Review of Systems: Constitutional : No Fever, No Chills ENT/Mouth : No sore throat, No Rhinorrhea, No Swallowing Difficulty Eyes: No Eye Pain, No Swelling, No Redness Cardiovascular : No Chest Pain, positive SOB, pos Orthopnea, positive Edema Respiratory : pos Cough, No Sputum, No Wheezing, positive dyspnea Gastrointestinal : No Nausea, No Vomiting, No Diarrhea, No abdominal Pain, No Hematochezia, No Melena Genitourinary : No Dysuria, No Urinary Frequency, No Hematuria Musculoskeletal : No joint pain, No Myalgias Skin : No Skin Lesions, No rash Neuro : No Weakness, No Numbness, No Dizziness, No Headache Psych : No Anxiety/Panic, No Depression Heme/Lymph: No Bruising, No Lymphadenopathy Endocrine : No Polyuria, No Polydipsia All other systems reviewed and are negative [facility] Past Medical History Attestation statement: The following information was validated with the patient. Source: old records reviewed Medical History Chronic respiratory failure DVT (deep venous thrombosis) Afib Acute on chronic systolic and diastolic heart failure, NYHA class 3 Pneumonia Social History Social History Household Members: Spouse Household Members Other:: Kezia, . Housing: Other Housing Other:: [facility]assisted living. Do you presently have visiting nurse or other home services: Yes Alcohol intake: current Alcohol intake frequency: holidays/special occasions only Patient Tobacco Use Status: Never used Tobacco Smoked in Last 30 Days: No Use of substances other than those prescribed or required for medical reasons: No Advance Directives: Yes Advance Directives Information Provided: No Advance Directives on File: No service: No Physical Exam Vital Signs: Vital Signs: Last Vital Signs Temp 97.5 F 11/15/23 11:02 Pulse 94 11/15/23 11:02 Resp 16 11/15/23 11:02 BP 157/94 H 11/15/23 11:02 Pulse Ox 94 11/15/23 11:02 O2 Del Method Nasal Cannula 11/15/23 11:02 O2 Flow Rate 3 11/15/23 11:02 Oxygen Flow Rate 3 11/15/23 09:51 BMI result Body Mass Index 31.9 Appearance: Alert. Oriented X3. No acute distress. Eyes: Pupils equal, round and reactive to light. ENT: Pharynx normal. Neck: Normal inspection. Neck supple. CVS: Normal heart rate and rhythm. Pulses normal. Respiratory: No respiratory distress. Breath sounds rales in both bases Abdomen: Soft and nontender. Skin: Skin warm and dry. Normal skin color. Normal skin turgor. Extremities: pitting edema of both ankles. No calf ttp Neuro: Oriented X 3. No motor deficit. No sensory deficit. Medications Administered Discontinued Medications Generic Name Dose Route Start Last Admin Trade Name Freq PRN Reason Stop Dose Admin Furosemide 40 mg 11/15/23 09:32 11/15/23 09:49 Furosemide 40 Mg/4 Ml Vial IVPUSH 11/15/23 09:33 40 mg STAT STA Administration Protocol Medical Decision Making Medical Decision Making MDM Narrative: 78 yo male with PMH of CHF on lasix EF 40-45%, obesity, chronic respiratory failure on 2L home O2, DVT/PE on eliquis, afib, HTN, BPH, mood disorder, recent admit in September for CHF and pneumonia notes he is compliant with medications and diet - he ate a lot of salt last night which is unusual then had a hard time laying flat, noted ankle swelling and orthopnea. He has no infectious symptoms. He is compliant with his eliquis so VTE unlikely. At this time suspect CHF will obtain basic labs, CXR, EKG, start on IV lasix Differential Diagnosis Differential Diagnoses: The differential diagnosis associated with the presentation includes CHF, viral syndrome, bronchitis Admission/Observation Consideration of admission/observation: Escalation of care including admission/observation considered increased orthopnea, hypoxia at home and with EMS - will admit for diuresis highest BNP on EMR Consult Healthcare Provider Management of the patient was discussed with: Hospitalist (admit ) Lab Data MDM Lab Attestation statement: I reviewed the patient's lab results. 11/15/23 09:46 11/15/23 11:01 Labs: Lab Results 11/15/23 11/15/23 11/15/23 Range/Units 09:46 09:49 10:06 WBC 11.1 H (4.8-10.8) X10*3/uL RBC 4.66 (4.60-5.80) X10*6/uL Hgb 14.8 (14.0-18.0) g/dl Hct 43.6 (42.0-52.0) % MCV 93.6 (80.0-98.0) fL MCH 31.8 (27.0-33.0) pg MCHC 33.9 (31.0-36.0) g/dl RDW 14.6 (11.0-16.0) % Plt Count 202 (160-400) X10*3/uL MPV 10.7 (9.4-12.4) fL Immature Gran % (Auto) 0.4 (0.0-0.4) % Neut % (Auto) 81.8 H (45-73) % Lymph % (Auto) 12.1 L (20-40) % [place] % (Auto) 4.8 (2-11) % Eos % (Auto) 0.5 (0-4) % Baso % (Auto) 0.4 (0-2) % Lymph # (Auto) 1.3 (1.2-4.9) X10*3/uL [place] # (Auto) 0.5 (0.1-1.2) X10*3/uL Eos # (Auto) 0.1 (0.0-0.4) X10*3/uL Baso # (Auto) 0.0 (0.0-0.2) X10*3/uL Abs Immat Gran (auto) 0.04 H (0.00-0.03) X10*3/uL Absolute Neuts (auto) 9.1 H (2.0-8.3) x10*3/uL Absolute Nucleated RBC 0.000 (0.0-0.012) X10*3/uL Nucleated RBC % (auto) 0.0 (0.0-0.2) /100WBC VBG pH 7.43 (7.32-7.43) VBG pCO2 35 mmHg VBG pO2 50 mmHg VBG HCO3 24 (22-26) mmol/L VBG O2 Saturation 80.0 % VBG Base Excess 0.3 mmol/L Sodium (135-145) mmol/L Potassium (3.3-5.1) mmol/L Chloride (96-108) mmol/L Carbon Dioxide (22-29) mmol/L Anion Gap (12-20) BUN (9-16) mg/dL Creatinine (0.5-1.4) mg/dL Estim Creat Clear Calc Estimated GFR Random Glucose (60-115) mg/dL Calcium (8.4-10.2) mg/dL Magnesium (1.6-2.6) mg/dL Total Bilirubin (0.0-1.0) mg/dL Direct Bilirubin (0.0-0.5) mg/dL AST (5-37) U/L ALT (0-40) U/L Alkaline Phosphatase (39-117) U/L Troponin I High Sens (<3.5-35.0) ng/L B-Natriuretic Peptide 891 H (<100) pg/mL Total Protein (6.5-8.0) g/dL Albumin (3.5-5.0) g/dL Lipase (8-78) U/L Procalcitonin ng/mL Urine Color Yellow Urine Appearance Clear Urine pH 6.5 (5.0-9.0) Ur Specific [place] 1.020 (1.005-1.025) Urine Protein Trace (Neg-Trace) mg/dL Urine Glucose (UA) Negative (Negative) mg/dL Urine Ketones Negative (Negative) mg/dL Urine Blood Negative (Negative) Urine Nitrite Negative (Negative) Ur Leukocyte Esterase Negative (Negative) COVID-19 (HIMANSHU) Negative (Negative) COVID-19 Clin Com See Note Influenza Type A (ELISABETH) Negative (Negative) Influenza Type B (ELISABETH) Negative (Negative) Influenza A & B Note See Note 11/15/23 Range/Units 11:01 WBC (4.8-10.8) X10*3/uL RBC (4.60-5.80) X10*6/uL Hgb (14.0-18.0) g/dl Hct (42.0-52.0) % MCV (80.0-98.0) fL MCH (27.0-33.0) pg MCHC (31.0-36.0) g/dl RDW (11.0-16.0) % Plt Count (160-400) X10*3/uL MPV (9.4-12.4) fL Immature Gran % (Auto) (0.0-0.4) % Neut % (Auto) (45-73) % Lymph % (Auto) (20-40) % [place] % (Auto) (2-11) % Eos % (Auto) (0-4) % Baso % (Auto) (0-2) % Lymph # (Auto) (1.2-4.9) X10*3/uL [place] # (Auto) (0.1-1.2) X10*3/uL Eos # (Auto) (0.0-0.4) X10*3/uL Baso # (Auto) (0.0-0.2) X10*3/uL Abs Immat Gran (auto) (0.00-0.03) X10*3/uL Absolute Neuts (auto) (2.0-8.3) x10*3/uL Absolute Nucleated RBC (0.0-0.012) X10*3/uL Nucleated RBC % (auto) (0.0-0.2) /100WBC VBG pH (7.32-7.43) VBG pCO2 mmHg VBG pO2 mmHg VBG HCO3 (22-26) mmol/L VBG O2 Saturation % VBG Base Excess mmol/L Sodium 137 (135-145) mmol/L Potassium 3.8 (3.3-5.1) mmol/L Chloride 102 (96-108) mmol/L Carbon Dioxide 26 (22-29) mmol/L Anion Gap 13 (12-20) BUN 13 (9-16) mg/dL Creatinine 0.76 (0.5-1.4) mg/dL Estim Creat Clear Calc 102.3 Estimated GFR > 60 Random Glucose 113 (60-115) mg/dL Calcium 9.3 (8.4-10.2) mg/dL Magnesium 1.7 (1.6-2.6) mg/dL Total Bilirubin 1.4 H (0.0-1.0) mg/dL Direct Bilirubin 0.4 (0.0-0.5) mg/dL AST 9 (5-37) U/L ALT < 5 (0-40) U/L Alkaline Phosphatase 90 (39-117) U/L Troponin I High Sens 10.0 (<3.5-35.0) ng/L B-Natriuretic Peptide (<100) pg/mL Total Protein 8.6 H (6.5-8.0) g/dL Albumin 3.3 L (3.5-5.0) g/dL Lipase 16 (8-78) U/L Procalcitonin 0.05 ng/mL Urine Color Urine Appearance Urine pH (5.0-9.0) Ur Specific [place] (1.005-1.025) Urine Protein (Neg-Trace) mg/dL Urine Glucose (UA) (Negative) mg/dL Urine Ketones (Negative) mg/dL Urine Blood (Negative) Urine Nitrite (Negative) Ur Leukocyte Esterase (Negative) COVID-19 (HIMANSHU) (Negative) COVID-19 Clin Com Influenza Type A (ELISABETH) (Negative) Influenza Type B (ELISABETH) (Negative) Influenza A & B Note Independent Interpretation I performed an independent interpretation of an: EKG and Plain X-Ray (CHF) Interpretation: Rate: 92 Rhythm: afib [place]: left Normal QRS complex. ST T wave : sig artifact no obvious BRIAN qTC: 474 prior studies: very poor tracing sig artifact The study has been interpreted contemporaneously by me. . Radiology Impression Discussion of test interpretation with radiology: I have reviewed the radiologist's reading. Independent Historian Clinical information obtained from an independent historian. History obtained from or confirmed by: EMS External Record Review External record reviewed: Inpatient record Discharge Plan Discharge Clinical Impression: CHF exacerbation Qualifiers: Heart failure type: systolic Qualified Code(s): I50.23 - Acute on chronic systolic (congestive) heart failure Patient Disposition: Admitted As Inpatient Prescriptions: No Action amlodipine 2.5 mg Tablet 2.5 mg PO DAILY tamsulosin 0.4 mg Capsule 0.4 mg PO BEDTIME omeprazole 20 mg Capsule,Delayed Release(Dr/Ec) 20 mg PO DAILY Gemtesa 75 mg Tablet 75 mg PO DAILY furosemide 40 mg Tablet 40 mg PO DAILY latanoprost 0.005 % Drops 1 drp ophthalmic-Right QPM metoprolol succinate 50 mg Tablet Extended Release 24 Hr 50 mg PO DAILY finasteride 5 mg Tablet 5 mg PO DAILY duloxetine 60 mg Capsule,Delayed Release(Dr/Ec) 60 mg PO DAILY apixaban 5 mg Tablet 5 mg PO BID acetaminophen 325 mg Tablet 1,000 mg PO DAILY vitamin A-vitamin C-vit E-min Tablet 1 tab PO DAILY ketoconazole 2 % Shampoo 1 appl TOPICAL MOTH PRN (Reason: dandruff) cefuroxime axetil 500 mg tablet 500 mg PO BID Qty: 14 0RF azithromycin 500 mg tablet 500 mg PO DAILY 6 Days Qty: 6 0RF potassium chloride 10 mEq capsule, extended release 10 meq PO DAILY Qty: 7 0RF
--- NOTE | 2023-11-15 09:31 | ECG_ITS ---
Test Reason : dyspnea Blood Pressure : / mmHG Vent. Rate : 092 BPM Atrial Rate : 000 BPM P-R Int : 000 ms QRS Dur : 112 ms QT Int : 384 ms P-R-T Axes : 000 -26 070 degrees QTc Int : 474 ms Poor data quality Atrial fibrillation Incomplete right bundle branch block Septal infarct (cited on or before 16-SEP-2023) Abnormal ECG When compared with ECG of 16-SEP-2023 20:56, Premature ventricular complexes are no longer Present Incomplete right bundle branch block is now Present Questionable change in initial forces of Septal leads Referred By: Mariaa Alicia Electronically Signed By:MARIANGEL CHANEY MD
[2023-11-15] MEDS: Furosemide 40 MG/4 ML VIAL IVPUSH (09:49)
[2023-11-15 09:51] VITALS: BP 144/79; BP 160/80; PULSE 72; PULSE 96; RESP 22; TEMP 36.7; O2SAT 79; O2SAT 93; BMI 31.9
[2023-11-15 09:54] LABS: MANUAL DIFF FLAG NO
[2023-11-15 09:55] LABS: Venous Blood Gas Refer to POC result
[2023-11-15 09:55] LABS: Basophils Percent Auto 0.4 % (0-2); Eosinophils Absolute Auto 0.1 X10*3/uL (0.0-0.4); Eosinophils Percent Auto 0.5 % (0-4); Hematocrit 43.6 % (42.0-52.0); Hemoglobin 14.8 g/dl (14.0-18.0); Imm Gran Abs Auto 0.04 X10*3/uL (0.00-0.03); Imm Gran Pct Auto 0.4 % (0.0-0.4); Lymphocytes Absolute Auto 1.3 X10*3/uL (1.2-4.9); Lymphocytes Percent Auto 12.1 % (20-40); Mean Corpuscular HGB Conc 33.9 g/dl (31.0-36.0); Mean Corpuscular Hemoglobin 31.8 pg (27.0-33.0); Mean Corpuscular Volume 93.6 fL (80.0-98.0); Mean Platelet Volume 10.7 fL (9.4-12.4); Monocytes Absolute Auto 0.5 X10*3/uL (0.1-1.2); Monocytes Percent Auto 4.8 % (2-11); Neutrophils Absolute Auto 9.1 x10*3/uL (2.0-8.3); Neutrophils Percent Auto 81.8 % (45-73); Platelet Count 202 X10*3/uL (160-400); Red Blood Count 4.66 X10*6/uL (4.60-5.80); Red Cell Distribution Width 14.6 % (11.0-16.0); White Blood Count 11.1 X10*3/uL (4.8-10.8)
[2023-11-15 09:55] LABS: VBG Base Excess 0.3 mmol/L; VBG HCO3 24 mmol/L (22-26); VBG pCO2 35 mmHg; VBG pH 7.43 (7.32-7.43); VBG pO2 50 mmHg
--- NOTE | 2023-11-15 10:10 | PC.NURSE ---
a&ox4. vss and up to date. nsr on the property assessment monitor. pt biba from home d/t sob x 2 days. pt was d/c[place] from [facility] [place] 1 month ago d/t CHF. pt is on 2-3L via NC baseline. pt was 79% on RA upon EMS arrival. EMS placed pt on 5L via NC - brought pt up to 95%. no interventions noted during EMS transport aside from placing a 20gIV in the left forearm. patent/dry/intact. RT bedside upon EMS arrival. pt placed on 3L via NC - resting at 93#. sob/wob noted. crackles noted throughout upon auscultation. labs/urine obtained/sent to lab. medication administered per provider order. tech bedside obtaining ekg. pt in no apparent distress at this time. call beyer placed within reach.
[2023-11-15 10:11] LABS: COVID-19 Test Negative (Negative); IDNOW Serial# 08D9AD1C; IDNOW Serial# 152EDE1D; Influenza A Negative (Negative); Influenza B2 Negative (Negative)
[2023-11-15 10:14] LABS: B Type Natriuretic Peptide 891 pg/mL (<100)
[2023-11-15 10:14] LABS: Appearance Urine Clear; Color Urine Yellow; Glucose Urine UA Negative (Negative); Leukocyte Esterase Urine Negative (Negative); Nitrite Urine Negative (Negative); PH 6.5 (5.0-9.0); Urine Blood Negative (Negative); Urine Ketones Negative (Negative); Urine Protein Trace mg/dL (Neg-Trace)
[2023-11-15 11:02] VITALS: BP 157/94; PULSE 94; RESP 16; TEMP 36.4; O2SAT 94
--- NOTE | 2023-11-15 11:10 | PC.NURSE ---
vss and up to date. pt still verbalizing feeling sob at this time. no wob noted. respirations even and unlabored. pt repositioned to comfort/sitting upright to promote patent airway. pt remains on 3L via NC at this time. amount of urine documented in I&O section. bedside for support. call beyer placed within reach.
[2023-11-15 11:35] LABS: Alanine Aminotransferase < 5 U/L (0-40); Albumin Level 3.3 g/dL (3.5-5.0); Alkaline Phosphatase 90 U/L (39-117); Anion Gap 13 (12-20); Aspartate Amino Transferase 9 U/L (5-37); Bilirubin Direct 0.4 mg/dL (0.0-0.5); Bilirubin Total 1.4 mg/dL (0.0-1.0); Blood Urea Nitrogen 13 mg/dL (9-16); Calcium 9.3 mg/dL (8.4-10.2); Carbon Dioxide 26 mmol/L (22-29); Chloride 102 mmol/L (96-108); Creatinine Clr Calc Pharmacy 102.3; Estimated Glomerular Filt Rate > 60; Glucose Random 113 mg/dL (60-115); Lipase 16 U/L (8-78); Magnesium 1.7 mg/dL (1.6-2.6); Potassium 3.8 mmol/L (3.3-5.1); Sodium 137 mmol/L (135-145); Total Protein 8.6 g/dL (6.5-8.0)
[2023-11-15 11:44] LABS: Procalcitonin 0.05 ng/mL
--- NOTE | 2023-11-15 12:24 | PM.IMHP ---
History of Present Illness Date of Service: 11/15/23 Attending physician on admission: Gaurav Flores Chief Complaint: kerr, hypoxia 78 year old male with history of HFrEF with chronic hypoxemic respiratory failure on 2-3L supplemental O2 at baseline, Chronic Afib on eliquis, htn, BPH, hx DVT presented to the ED with his , Hayley, for evaluation of KERR, orthopnea gradually worsening over 1 week. Has increased O2 requirement to 5L with condenser. He was hostpialized 1 month ago for acute CHF exacerbation with EF noted to be 40-45% at that time and was discharged on [id number] daily which he has been compliant with. Reports gradual weight loss of 20 pounds since then, no acute weight gain. Has been watching sodium though has been drinking electrolyte rich beverages such as gatorade. Not compliant with fluid restrictions- drinks up to 2L daily. Also reports eating sodium rich cripsy duck last night. 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 In the ED, hypertensive to 157/94. Vitals otherwise stable. Hematology studies unremarkable overall. Renal function baseline, electrolytes normal. BNP 891. Trop WNL. VBG reassuring. UA unremarkable. Negative for COVID-19, flu. CXR shows patchy radioopacities throughout lung aggarwal, probable small left sided pleural effusion and accentuation of the pulmonary vasculature. In the ED has been given 40mg IV lasix and has been weaned to baseline 3L supplemental O2. Review of Systems Review of Systems: General: No fevers, malaise, unintentional weight loss HEENT: No blurred vision, diplopia. No sore throat, nasal congestion, rhinorrhea, sinus pain, ear pain Cardiovascular: +ble edema. No chest pain, palpitations Respiratory: +KERR, +orthopnea, +PND. No wheezing, cough GI: No abdominal pain, nausea, vomiting, diarrhea, constipation, melena, hematochezia : No dysuria, hematuria, increased urinary frequency, decreased urinary output MSK: No myalgia, back pain Neuro: No headaches, weakness, paresthesias Skin: No rashes or lesions ON LICENSE OF [facility] Medical History Chronic respiratory failure DVT (deep venous thrombosis) Afib Acute on chronic systolic and diastolic heart failure, NYHA class 3 Pneumonia Social History Household Members: Spouse Household Members Other:: Kezia, . Housing: Other Housing Other:: [facility] ?assisted living. Do you presently have visiting nurse or other home services: Yes Alcohol intake: current Alcohol intake frequency: holidays/special occasions only Patient Tobacco Use Status: Never used Tobacco Smoked in Last 30 Days: No Use of substances other than those prescribed or required for medical reasons: No Advance Directives: Yes Advance Directives Information Provided: No Advance Directives on File: No service: No Meds Allergies Allergy/AdvReac Type Severity Reaction Status Date / Time No Known Allergies Allergy Verified 11/15/23 09:50 Home Medications Medication Instructions Recorded Confirmed Last Taken Type acetaminophen 325 mg tablet 1,000 mg PO DAILY 09/17/23 09/17/23 Unknown History amlodipine 2.5 mg tablet 2.5 mg PO DAILY 09/17/23 09/17/23 09/16/23 History apixaban 5 mg tablet 5 mg PO BID 09/17/23 09/17/23 Unknown History duloxetine 60 mg capsule,delayed 60 mg PO DAILY 09/17/23 09/17/23 Unknown History release finasteride 5 mg tablet 5 mg PO DAILY 09/17/23 09/17/23 Unknown History furosemide 40 mg tablet 40 mg PO DAILY 09/17/23 09/17/23 Unknown History ketoconazole 2 % shampoo 1 appl topical MOTH PRN dandruff 09/17/23 09/17/23 Unknown History latanoprost 0.005 % eye drops 1 drp ophthalmic-Right QPM 09/17/23 09/17/23 Unknown History metoprolol succinate 50 mg 50 mg PO DAILY 09/17/23 09/17/23 Unknown History tablet,extended release 24 hr omeprazole 20 mg capsule,delayed 20 mg PO DAILY 09/17/23 09/17/23 Unknown History release tamsulosin 0.4 mg capsule 0.4 mg PO BEDTIME 09/17/23 09/17/23 Unknown History vibegron 75 mg tablet (Gemtesa) 75 mg PO DAILY 09/17/23 09/17/23 Unknown History vitamin A-vitamin C-vit E-min 1 tab PO DAILY 09/17/23 09/17/23 Unknown History tablet Physical Exam Vital Signs and Narrative: Vital Signs: Last Vital Signs Temp 97.5 F 11/15/23 11:02 Pulse 94 11/15/23 11:02 Resp 16 11/15/23 11:02 BP 157/94 H 11/15/23 11:02 Pulse Ox 94 11/15/23 11:02 O2 Del Method Nasal Cannula 11/15/23 11:02 O2 Flow Rate 3 11/15/23 11:02 Oxygen Flow Rate 3 11/15/23 09:51 BMI result Body Mass Index 31.9 Constitutional - Awake and Alert, No apparent distress Eyes - PERRLA, EOMI Cardiovascular - S1S2, irregularly irregular, rate normal, 2+ ble edema Respiratory - Normal lung expansion, Normal respiratory effort, No respiratory distress, bilateral crackles Gastrointestinal - NT / ND; +BS; No rebound or guarding Extremities - no calf tenderness bilaterally, no swelling Skin - Warm/Dry Neurological - Alert & oriented x3 Psychological - Appropriate affect Results Labs 11/15/23 09:46 11/15/23 11:01 Labs: Laboratory Results - last 24 hr 11/15/23 11/15/23 11/15/23 09:46 09:49 10:06 MCV 93.6 MCH 31.8 MCHC 33.9 RDW 14.6 Plt Count 202 MPV 10.7 Immature Gran % (Auto) 0.4 Neut % (Auto) 81.8 H Lymph % (Auto) 12.1 L [place] % (Auto) 4.8 Eos % (Auto) 0.5 Baso % (Auto) 0.4 Lymph # (Auto) 1.3 [place] # (Auto) 0.5 Eos # (Auto) 0.1 Baso # (Auto) 0.0 Abs Immat Gran (auto) 0.04 H Absolute Neuts (auto) 9.1 H Absolute Nucleated RBC 0.000 Nucleated RBC % (auto) 0.0 VBG pH 7.43 VBG pCO2 35 VBG pO2 50 VBG HCO3 24 VBG O2 Saturation 80.0 VBG Base Excess 0.3 Anion Gap Estim Creat Clear Calc Estimated GFR Random Glucose Calcium Magnesium Total Bilirubin Direct Bilirubin AST ALT Alkaline Phosphatase B-Natriuretic Peptide 891 H Total Protein Albumin Lipase Procalcitonin Urine Color Yellow Urine Appearance Clear Urine pH 6.5 Ur Specific [place] 1.020 Urine Protein Trace Urine Glucose (UA) Negative Urine Ketones Negative Urine Blood Negative Urine Nitrite Negative Ur Leukocyte Esterase Negative COVID-19 (HIMANSHU) Negative COVID-19 Clin Com See Note Influenza Type A (ELISABETH) Negative Influenza Type B (ELISABETH) Negative Influenza A & B Note See Note 11/15/23 11:01 MCV MCH MCHC RDW Plt Count MPV Immature Gran % (Auto) Neut % (Auto) Lymph % (Auto) [place] % (Auto) Eos % (Auto) Baso % (Auto) Lymph # (Auto) [place] # (Auto) Eos # (Auto) Baso # (Auto) Abs Immat Gran (auto) Absolute Neuts (auto) Absolute Nucleated RBC Nucleated RBC % (auto) VBG pH VBG pCO2 VBG pO2 VBG HCO3 VBG O2 Saturation VBG Base Excess Anion Gap 13 Estim Creat Clear Calc 102.3 Estimated GFR > 60 Random Glucose 113 Calcium 9.3 Magnesium 1.7 Total Bilirubin 1.4 H Direct Bilirubin 0.4 AST 9 ALT < 5 Alkaline Phosphatase 90 B-Natriuretic Peptide Total Protein 8.6 H Albumin 3.3 L Lipase 16 Procalcitonin 0.05 Urine Color Urine Appearance Urine pH Ur Specific [place] Urine Protein Urine Glucose (UA) Urine Ketones Urine Blood Urine Nitrite Ur Leukocyte Esterase COVID-19 (HIMANSHU) COVID-19 Clin Com Influenza Type A (ELISABETH) Influenza Type B (ELISABETH) Influenza A & B Note Imaging Radiologist's Impressions: Impressions Chest X-Ray 11/15/23 09:48 IMPRESSION: 1. Redemonstration of patchy radiopacities throughout the bilateral lung aggarwal. 2. Blunting of the left costophrenic recess which may reflect a small pleural effusion versus scarring. 3. Accentuation of pulmonary vasculature. 4. Flattening the bilateral hemidiaphragms. Assessment and Plan (1) CHF exacerbation: Qualifiers: Heart failure type: systolic Qualified Code(s): I50.23 - Acute on chronic systolic (congestive) heart failure Status: Acute (2) Acute and chronic respiratory failure with hypoxia: Status: Acute Plan 78 year old male with history of HFrEF with chronic hypoxemic respiratory failure on 2-3L supplemental O2 at baseline, Chronic Afib on eliquis, htn, BPH, hx DVT admitted for acute CHF exacerbation with acute on chronic hypoxemic respiratory failure. #Acute CHF exacerbation with acute on chronic hypoxemic respiratory failure -has been weaned to baseline 3L supplemental O2 following IV lasix administration in ED -CHF shows increased pulmonary vasculature, left sided pleural effusion. Symptomatic with orthopnea, PND. BNP 891 -40mg IV lasix daily -Cardiac diet -strict I&O -Daily weights -Echo 10/09- mildly decreased LV systolic fx with EF 40-45% -Follow renal function/lytes. Trend BNP -consider cardiology if not improving. Follows with Dr. Melendez outpt #Chronic atrial fibrillation- rate controlled -continue eliquis for AC -continue metoprolol for rate control #Hx DVT -continue eliquis #HTN -bp reasonably controlled -continue metoprolol, amlodipine #BPH -continue home meds DVT prophylaxis- eliquis Full code Pt requires inpt stay at least 2 midnights for management of acute CHF exacerbation symptomatic with significant KERR and orthopnea with acute on chronic hypoxia on arrival requiring IV diuresis, close monitoring of renal function and electrolyte levels. Quality Stroke Does the patient have a stroke diagnosis?: No VTE Prior VTE?: Yes VTE Risk Level:: Medical - moderate - high VTE Device Contraindication: Treatment Not Indicated VTE Drug Contraindication: N/A - Med Ordered
--- NOTE | 2023-11-15 12:56 | PHA.MEDREC ---
Pharmacy Consult ? Medication Reconciliation Pharmacy has completed the medication reconciliation. Spoke with patient, he did not take any of his morning medications today.
[2023-11-15 13:26] VITALS: BP 131/74; PULSE 88; RESP 18; TEMP 36.6; O2SAT 96
--- NOTE | 2023-11-15 16:46 | PC.NURSE ---
pt attempted to ambulate to bathroom w/ oxygen but was unable to d/t being unsteady on his feet. pt stated he felt extremely sob and weak. bedside commode placed bedside.
[2023-11-15 17:40] LABS: Troponin-I High Sensitivity 10.7 ng/L (<3.5-35.0)
[2023-11-15 20:00] VITALS: BP 141/81; PULSE 94; RESP 16; O2SAT 97
[2023-11-15] MEDS: Tamsulosin HCL 0.4 MG CAPSULE PO (20:55)
[2023-11-15] MEDS: Finasteride 5 MG TABLET PO (20:55)
[2023-11-15] MEDS: Apixaban 5 MG TABLET PO (20:55)
[2023-11-16 04:48] VITALS: BP 139/79; PULSE 95; RESP 20; TEMP 35.9; O2SAT 95
[2023-11-16 06:00] VITALS: BMI 31.2
--- NOTE | 2023-11-16 06:09 | PC.NURSE ---
pt asleep comfortably in hospital bed, respirations even and unlabored. wearing O2 via nasal cannula. phlebotomy at bedside obtaining morning labs. pt offers no current complaints. plan of care ongoing
[2023-11-16 06:28] LABS: MANUAL DIFF FLAG NO
[2023-11-16] MEDS: Omeprazole 20 MG CAPSULE.DR PO (06:45)
[2023-11-16 06:48] LABS: Basophils Percent Auto 0.4 % (0-2); Eosinophils Absolute Auto 0.1 X10*3/uL (0.0-0.4); Hematocrit 40.9 % (42.0-52.0); Hemoglobin 13.7 g/dl (14.0-18.0); Imm Gran Abs Auto 0.03 X10*3/uL (0.00-0.03); Imm Gran Pct Auto 0.4 % (0.0-0.4); Lymphocytes Absolute Auto 1.4 X10*3/uL (1.2-4.9); Lymphocytes Percent Auto 16.7 % (20-40); Mean Corpuscular HGB Conc 33.5 g/dl (31.0-36.0); Mean Corpuscular Hemoglobin 30.8 pg (27.0-33.0); Mean Corpuscular Volume 91.9 fL (80.0-98.0); Mean Platelet Volume 10.4 fL (9.4-12.4); Monocytes Absolute Auto 0.6 X10*3/uL (0.1-1.2); Monocytes Percent Auto 7.3 % (2-11); Neutrophils Percent Auto 74.2 % (45-73); Platelet Count 181 X10*3/uL (160-400); Red Blood Count 4.45 X10*6/uL (4.60-5.80); Red Cell Distribution Width 14.3 % (11.0-16.0); White Blood Count 8.1 X10*3/uL (4.8-10.8)
[2023-11-16 06:50] LABS: Anion Gap 13 (12-20); Blood Urea Nitrogen 17 mg/dL (9-16); Calcium 9.2 mg/dL (8.4-10.2); Carbon Dioxide 26 mmol/L (22-29); Chloride 102 mmol/L (96-108); Creatinine Clr Calc Pharmacy 98.5; Estimated Glomerular Filt Rate > 60; Glucose Random 104 mg/dL (60-115); Sodium 137 mmol/L (135-145)
[2023-11-16 07:03] LABS: B Type Natriuretic Peptide 1152 pg/mL (<100)
[2023-11-16 07:41] VITALS: BP 156/88; PULSE 94; RESP 16; TEMP 36.1; O2SAT 97
[2023-11-16] MEDS: Metoprolol Succinate ER 50 MG TAB.ER.24H PO (07:55)
[2023-11-16] MEDS: Multivitamin TABLET 1 TAB PO (07:55)
[2023-11-16] MEDS: DULoxetine HCl 60 MG CAPSULE.DR PO (07:55)
[2023-11-16] MEDS: amLODIPine Besylate 2.5 MG TABLET PO (07:55)
[2023-11-16] MEDS: Apixaban 5 MG TABLET PO ×2 (07:56→19:49)
[2023-11-16] MEDS: 0.9 % Sodium Chloride Flush 3 ML SYRINGE IVFLUSH ×3 (07:56→19:49)
[2023-11-16] MEDS: Furosemide 40 MG/4 ML VIAL IVPUSH (07:56)
--- NOTE | 2023-11-16 08:00 | PC.NURSE ---
PT IS A/O X 3 NO SOB/JESSY NOTED SPEAKS IN FULL SENTENCES. LUNGS - ANDERS UPPER DIMINISHED, ANDERS LOWER FINE CRACKLES NOTED. PT IS 02 AT 5L/M VIA N/C AT 97%. O2 DECREASED TO 3L/M VIA N/C. PT IS SITTING UP AT THE EDGE OF THE BED WITH RED SOCKS ON. FALL PRECAUTION MAINTAINED. PT'S ANDERS LOWER EXT PURPLE DISCOLORATION AND 2+ PITTING EDEMA NOTED. PT AWARE OF PLAN OF CARE. PT VOIDS IN URINAL.
--- NOTE | 2023-11-16 08:28 | MHC.EDTECH ---
pt ate 100% of his breakfast. 240cc of juice. emptied urinal, 350cc.
--- NOTE | 2023-11-16 09:30 | PC.NURSE ---
PT SEEN BY DR. COONEY. PT IS AWARE OF PLAN OF CARE.
[2023-11-16] MEDS: Ketoconazole 2 % Shampoo 120 ML BTL 1 APPL TOPICAL (10:30)
[2023-11-16 10:42] VITALS: BP 136/82; O2SAT 96
--- NOTE | 2023-11-16 11:19 | MHC.EDTECH ---
PT washed himself up with the setup from this tech. Complete bed change. PT is sitting in the recliner chair with his feet elevated. PT in the room.
--- NOTE | 2023-11-16 11:20 | MHC.EDTECH ---
Urinal emptied - 200cc
--- NOTE | 2023-11-16 12:31 | P.PNIM_ITS ---
Subjective Subjective Date of Service: 11/16/23 Interval History: chf excerebation Review of Systems sob with minimum excersion but says sob somewhat better than yesterday has cough denies any chest pain Physical Exam 2 Vital Signs: Vital Signs: Last Vital Signs Temp 96.9 F 11/16/23 07:41 Pulse 94 11/16/23 07:41 Resp 16 11/16/23 07:41 BP 136/82 11/16/23 10:42 Pulse Ox 96 11/16/23 10:42 O2 Del Method Nasal Cannula 11/16/23 10:42 O2 Flow Rate 4 11/16/23 10:42 Oxygen Flow Rate 3 11/15/23 09:51 BMI result Body Mass Index 31.9 Appearance: Alert.? Oriented X3.? cvs: rrr, [id number]. res: clear to auscultation ,no rhonchii or wheezing abd: no rebound or guarding ,nt, bs present. ext pulses present , no cyanosis ,has b/l leg edema 2+ neuro: axo3 , nonfocal. Objective Data Active Medications Acetaminophen (Acetaminophen 325 Mg Tablet) 650 mg PO Q6H PRN PRN Reason: Pain, Mild (Pain Scale 1-3) Albuterol Sulfate (Albuterol Sulfate 90 Mcg 8 Gm Inhaler) 1 puff INHALE Q4H PRN PRN Reason: Shortness Of Breath Or Wheezing Amlodipine Besylate (Amlodipine Besylate 2.5 Mg Tablet) 2.5 mg PO DAILY [facility]; Protocol Last Admin: 11/16/23 07:55 Dose: 2.5 mg Documented By: KIKO Apixaban (Apixaban 5 Mg Tablet) 5 mg PO BID REZA Last Admin: 11/16/23 07:56 Dose: 5 mg Documented By: KIKO Duloxetine HCl (Duloxetine Hcl 60 Mg Capsule.) 60 mg PO DAILY REZA Last Admin: 11/16/23 07:55 Dose: 60 mg Documented By: KIKO Finasteride (Finasteride 5 Mg Tablet) 5 mg PO BEDTIME REZA Last Admin: 11/15/23 20:55 Dose: 5 mg Documented By: DIAZDEBerta Furosemide (Furosemide 40 Mg/4 Ml Vial) 40 mg IVPUSH DAILY [facility]; Protocol Last Admin: 11/16/23 07:56 Dose: 40 mg Documented By: KIKO Ketoconazole (Ketoconazole 2 % Shampoo 120 Ml Btl) 1 appl TOPICAL Q48H PRN; Protocol PRN Reason: dandruff Metoprolol Succinate (Metoprolol Succinate Er 50 Mg Tab.Er.24h) 50 mg PO DAILY [facility]; Protocol Last Admin: 11/16/23 07:55 Dose: 50 mg Documented By: KIKO Multivitamins/Vitamin C (Multivitamin Tablet) 1 tab PO DAILY [facility] Last Admin: 11/16/23 07:55 Dose: 1 tab Documented By: KIKO Non-Formulary Medication (Vibegron [Gemtesa]) 75 mg PO BEDTIME [facility] Omeprazole (Omeprazole 20 Mg Capsule.Dr) 20 mg PO DAILY@0630 [facility] Last Admin: 11/16/23 06:45 Dose: 20 mg Documented By: EULOGIO Ondansetron HCl (Ondansetron Hcl 4 Mg/2 Ml Vial) 4 mg IVPUSH Q8H PRN PRN Reason: Nausea and Vomiting Sodium Chloride (0.9 % Sodium Chloride Flush 3 Ml Syringe) 3 ml IVFLUSH QSHIFT [facility] Last Admin: 11/16/23 07:56 Dose: 3 ml Documented By: KIKO Tamsulosin HCl (Tamsulosin Hcl 0.4 Mg Capsule) 0.4 mg PO BEDTIME [facility] Last Admin: 11/15/23 20:55 Dose: 0.4 mg Documented By: FARIDADEM Labs 11/16/23 06:05 11/16/23 06:05 Labs: Laboratory Results - last 24 hr 11/16/23 06:05 MCV 91.9 MCH 30.8 MCHC 33.5 RDW 14.3 Plt Count 181 MPV 10.4 Immature Gran % (Auto) 0.4 Neut % (Auto) 74.2 H Lymph % (Auto) 16.7 L [place] % (Auto) 7.3 Eos % (Auto) 1.0 Baso % (Auto) 0.4 Lymph # (Auto) 1.4 [place] # (Auto) 0.6 Eos # (Auto) 0.1 Baso # (Auto) 0.0 Abs Immat Gran (auto) 0.03 Absolute Neuts (auto) 6.0 Absolute Nucleated RBC 0.000 Nucleated RBC % (auto) 0.0 Anion Gap 13 Estim Creat Clear Calc 98.5 Estimated GFR > 60 Random Glucose 104 Calcium 9.2 B-Natriuretic Peptide 1152 H Assessment and Plan (1) Acute and chronic respiratory failure with hypoxia: Status: Acute (2) CHF exacerbation: Status: Acute Assessment and Plan: 78 year old male with history of HFrEF with chronic hypoxemic respiratory failure on 2-3L supplemental O2 at baseline, Chronic Afib on eliquis, htn, BPH, hx DVT admitted for acute CHF exacerbation with acute on chronic hypoxemic respiratory failure. Acute CHF exacerbation with acute on chronic hypoxemic respiratory failure -has been weaned to baseline 3L supplemental O2 following IV lasix administration in ED cxr-CHF shows increased pulmonary vasculature, left sided pleural effusion. recent Echo 10/09- mildly decreased LV systolic fx with EF 40-45% Symptomatic with orthopnea. Cardiac diet,strict I&O( so far 930ml negative) Daily weights plan: chf education given-low salt diet ,avoid excessive fluids continue 40mg IV lasix daily Follow renal function/lytes. 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 Chronic atrial fibrillation- rate controlled continue eliquis for AC and metoprolol for rate control Hx DVT-continue eliquis HTN-bp reasonably controlled continue metoprolol, amlodipine BPH-continue home meds DVT prophylaxis- eliquis Full code onin hospitlisation need : acute CHF exacerbation symptomatic with significant LORENZO and orthopnea with acute on chronic hypoxia on arrival requiring IV diuresis, close monitoring of renal function and electrolyte levels.if chf does not improve -may need cardiologyeval. Quality Stroke Does the patient have a stroke diagnosis?: No VTE Prior VTE?: Yes VTE Risk Level:: Medical - moderate - high VTE Device Contraindication: Treatment Not Indicated VTE Drug Contraindication: N/A - Med Ordered
--- NOTE | 2023-11-16 12:54 | MHC.CM.PN ---
pt lives with pt on home 02 lives at [facility] so hadly where he will return when pt has own ride home
--- NOTE | 2023-11-16 13:58 | MHC.EDTECH ---
This tech put this PT back into bed. PT was not incontinent. Pt is sitting on the side of the bed. Pt is a self repo and can repositioned himself into bed.
[2023-11-16 14:00] VITALS: BP 155/85; PULSE 88; RESP 18; TEMP 36.2; O2SAT 95
--- NOTE | 2023-11-16 14:43 | PC.NURSE ---
PHYSICAL THERAPIST (NADEEN) AT BEDSIDE. PT / AWARE OF PLAN OF CARE.
--- NOTE | 2023-11-16 18:03 | MHC.EDTECH ---
PT ATE 100% OF HIS DINNER AND 240CC OF FLUIDS
[2023-11-16] MEDS: Tamsulosin HCL 0.4 MG CAPSULE PO (19:49)
[2023-11-16] MEDS: Finasteride 5 MG TABLET PO (19:49)
[2023-11-16 23:27] VITALS: BP 143/83; PULSE 74; RESP 16; TEMP 36; O2SAT 98
[2023-11-17] MEDS: Omeprazole 20 MG CAPSULE.DR PO (05:17)
[2023-11-17 05:30] VITALS: BMI 31.3
[2023-11-17 05:34] VITALS: BP 147/88; PULSE 85; RESP 18; TEMP 36; O2SAT 98
--- NOTE | 2023-11-17 07:30 | PC.NURSE ---
PT IS A/O X 4 NO SOB/JESSY NOTED SPEAKS IN FULL SENTENCES. LUNGS - ALL LOBES DIMINISHED EXCEPT RUL WHICH WAS CTA. PT IS SITTING UP ON THE SIDE OF THE HEAD. ANDERS LOWER LEGS - 1-2+ PITTING EDEMA WITH DISCOLORATION (REDNESS). WILL CONTINUE TO MONITOR.
[2023-11-17 07:42] VITALS: BP 132/79; PULSE 86; RESP 16; TEMP 36.1; O2SAT 97
[2023-11-17] MEDS: Multivitamin TABLET 1 TAB PO (07:45)
[2023-11-17] MEDS: Apixaban 5 MG TABLET PO ×2 (07:46→20:11)
[2023-11-17] MEDS: amLODIPine Besylate 2.5 MG TABLET PO (07:46)
[2023-11-17] MEDS: DULoxetine HCl 60 MG CAPSULE.DR PO (07:46)
[2023-11-17] MEDS: Furosemide 40 MG/4 ML VIAL IVPUSH (07:47)
[2023-11-17] MEDS: 0.9 % Sodium Chloride Flush 3 ML SYRINGE IVFLUSH ×3 (07:47→20:14)
[2023-11-17] MEDS: Metoprolol Succinate ER 50 MG TAB.ER.24H PO (07:48)
--- NOTE | 2023-11-17 08:18 | MHC.CM.PN ---
CM met with Patient at bedside and addressed JEREZ with her, providing Patient with the original and a copy has been placed on the chart. 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 Home/self care is the goal and CM has initiated and will follow for dc planning. PCP is Dr. Rankin from [place].
--- NOTE | 2023-11-17 10:39 | P.PNIM_ITS ---
Subjective Subjective Date of Service: 11/17/23 Interval History: dyspnea/edema improved; no chest pain Review of Systems Review of Systems: Yes all other systems are reviewed and are negative Physical Exam 2 Vital Signs: Vital Signs: Last Vital Signs Temp 96.9 F 11/17/23 07:42 Pulse 86 11/17/23 07:42 Resp 16 11/17/23 07:42 BP 132/79 11/17/23 07:42 Pulse Ox 97 11/17/23 07:42 O2 Del Method Nasal Cannula 11/17/23 07:42 O2 Flow Rate 3 11/17/23 07:42 Oxygen Flow Rate 3 11/15/23 09:51 BMI result Body Mass Index 31.3 Gen: in no acute distress HEENT: sclera anicteric, moist mucus membranes Neck: supple, JVD present Lungs: clear to auscultation bilaterally Heart: irregular, no murmurs Abd: soft, non-tender, non-distended Ext: 1+ BLE Skin: warm/well-perfused Neuro: alert and oriented x3, no focal findings Psych: appropriate affect Objective Data Active Medications Acetaminophen (Acetaminophen 325 Mg Tablet) 650 mg PO Q6H PRN PRN Reason: Pain, Mild (Pain Scale 1-3) Albuterol Sulfate (Albuterol Sulfate 90 Mcg 8 Gm Inhaler) 1 puff INHALE Q4H PRN PRN Reason: Shortness Of Breath Or Wheezing Amlodipine Besylate (Amlodipine Besylate 2.5 Mg Tablet) 2.5 mg PO DAILY [facility]; Protocol Last Admin: 11/17/23 07:46 Dose: 2.5 mg Documented By: KIKO Apixaban (Apixaban 5 Mg Tablet) 5 mg PO BID REZA Last Admin: 11/17/23 07:46 Dose: 5 mg Documented By: KIKO Duloxetine HCl (Duloxetine Hcl 60 Mg Capsule.) 60 mg PO DAILY [facility] Last Admin: 11/17/23 07:46 Dose: 60 mg Documented By: KIKO Finasteride (Finasteride 5 Mg Tablet) 5 mg PO BEDTIME [facility] Last Admin: 11/16/23 19:49 Dose: 5 mg Documented By: VALERIA Furosemide (Furosemide 40 Mg/4 Ml Vial) 40 mg IVPUSH DAILY [facility]; Protocol Last Admin: 11/17/23 07:47 Dose: 40 mg Documented By: KIKO Ketoconazole (Ketoconazole 2 % Shampoo 120 Ml Btl) 1 appl TOPICAL Q48H PRN; Protocol PRN Reason: dandruff Last Admin: 11/16/23 10:30 Dose: 1 appl Documented By: KIKO Metoprolol Succinate (Metoprolol Succinate Er 50 Mg Tab.Er.24h) 50 mg PO DAILY [facility]; Protocol Last Admin: 11/17/23 07:48 Dose: 50 mg Documented By: KIKO Multivitamins/Vitamin C (Multivitamin Tablet) 1 tab PO DAILY [facility] Last Admin: 11/17/23 07:45 Dose: 1 tab Documented By: KIKO Non-Formulary Medication (Vibegron [Gemtesa]) 75 mg PO BEDTIME [facility] Omeprazole (Omeprazole 20 Mg Capsule.Dr) 20 mg PO DAILY@0630 [facility] Last Admin: 11/17/23 05:17 Dose: 20 mg Documented By: JUSTEN Ondansetron HCl (Ondansetron Hcl 4 Mg/2 Ml Vial) 4 mg IVPUSH Q8H PRN PRN Reason: Nausea and Vomiting Sodium Chloride (0.9 % Sodium Chloride Flush 3 Ml Syringe) 3 ml IVFLUSH QSHIFT [facility] Last Admin: 11/17/23 07:47 Dose: 3 ml Documented By: KIKO Tamsulosin HCl (Tamsulosin Hcl 0.4 Mg Capsule) 0.4 mg PO BEDTIME [facility] Last Admin: 11/16/23 19:49 Dose: 0.4 mg Documented By: PIONA Labs 11/16/23 06:05 11/16/23 06:05 Assessment and Plan (1) Acute and chronic respiratory failure with hypoxia: Status: Acute (2) CHF exacerbation: Status: Acute Assessment and Plan: d2 78 yo M with HFrEF, chronic hypoxia on 2L O2, chronic AF on apixaban, HTN, BPH, hx DVT admitted for CHF exacerbation with acute/chronic hypoxia acute/chronic hypoxic RF due to acute/chronic HFEF - continue IV furosemide, negative 1340 thus far, monitor I/O + BNP + BMP + Mg - TTE 09/17/23: 1. [id number] LV systolic dysfunction with LVEF of 40-45% with severe left ventricular hypertrophy and at least grade 2 diastolic dysfunction 2. Mild left atrial enlargement 3. Calcific aortic valve and mitral annular calcification noted with no significant abnormality of cardiac valvular Dopplers 4. Mildly dilated ascending aorta at 3.9 cm 5. Normal RV systolic pressure 6. No gross pericardial effusion - weaned to home O2 dose chronic AF - continue apixaban, metoprolol hx DVT - continue apixaban HTN - continue metoprolol, amlodipine BPH - continue finasteride, tamsulosin VTE ppx - apixaban dispo - anticipate home with VNA In my clinical judgment, the patient requires continued inpatient hospitalization for the following reasons: IV diuresis Total time managing care of this patient today: 35 minutes. Quality Stroke Does the patient have a stroke diagnosis?: No VTE Prior VTE?: Yes VTE Risk Level:: Medical - moderate - high VTE Device Contraindication: Treatment Not Indicated VTE Drug Contraindication: N/A - Med Ordered
--- NOTE | 2023-11-17 12:10 | PC.NURSE ---
PT'S IS AT THE BEDSIDE. PT ATE 100% OF LUNCH.
[2023-11-17 14:00] VITALS: BP 121/69; PULSE 76; RESP 18; TEMP 36.1; O2SAT 95
[2023-11-17 15:45] VITALS: BP 120/77; PULSE 80; RESP 17; TEMP 36.1; O2SAT 95
--- NOTE | 2023-11-17 15:53 | PC.NURSE ---
this rn assumed care of pt. pt sitting in recliner at this time, a&ox4, respirations even and unlabored. pt denies SOB, chest pain and pain. pt on 2L nasal cannula sating 95%. no acute distress noted.
[2023-11-17 18:28] VITALS: BP 152/71; PULSE 87; RESP 18; TEMP 36.2; O2SAT 94
[2023-11-17 18:32] VITALS: BMI 31.3
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
[2023-11-17 19:31] VITALS: BP 124/74; PULSE 85; RESP 18; TEMP 36.7; O2SAT 93
[2023-11-17] MEDS: Finasteride 5 MG TABLET PO (20:11)
[2023-11-17] MEDS: Tamsulosin HCL 0.4 MG CAPSULE PO (20:11)
[2023-11-18 03:56] VITALS: BP 142/83; PULSE 84; RESP 18; TEMP 36.7; O2SAT 95
[2023-11-18] MEDS: Omeprazole 20 MG CAPSULE.DR PO (05:44)
[2023-11-18 07:26] LABS: Anion Gap 11 (12-20); Blood Urea Nitrogen 19 mg/dL (9-16); Calcium 9.2 mg/dL (8.4-10.2); Carbon Dioxide 32 mmol/L (22-29); Chloride 98 mmol/L (96-108); Creatinine Clr Calc Pharmacy 98.8; Estimated Glomerular Filt Rate > 60; Glucose Random 95 mg/dL (60-115); Magnesium 1.7 mg/dL (1.6-2.6); Potassium 3.6 mmol/L (3.3-5.1); Sodium 137 mmol/L (135-145)
[2023-11-18 07:32] LABS: B Type Natriuretic Peptide 922 pg/mL (<100)
[2023-11-18 07:40] VITALS: BP 136/81; PULSE 86; RESP 18; TEMP 36.4; O2SAT 95
[2023-11-18] MEDS: Metoprolol Succinate ER 50 MG TAB.ER.24H PO (09:25)
[2023-11-18] MEDS: Multivitamin TABLET 1 TAB PO (09:25)
[2023-11-18] MEDS: Apixaban 5 MG TABLET PO (09:25)
[2023-11-18] MEDS: amLODIPine Besylate 2.5 MG TABLET PO (09:25)
[2023-11-18] MEDS: DULoxetine HCl 60 MG CAPSULE.DR PO (09:26)
[2023-11-18] MEDS: Furosemide 40 MG/4 ML VIAL IVPUSH (09:26)
[2023-11-18] MEDS: 0.9 % Sodium Chloride Flush 3 ML SYRINGE IVFLUSH (09:26)
--- NOTE | 2023-11-18 10:45 | P.F2F_ITS ---
Service Date Service Date: 11/18/23 Encounter Date of encounter: 11/18/23 Reasons for Services Signs and symptoms assessed: CHF Reason for nursing home: medication management, medication treatment and teach disease management Reason for occupational therapy: home safety and mobility, therapeutic exercises, gait/transfer training, assess need for DME, ADL training and energy conservation MD Overseeing Care: Cheyenne Aragon Homebound: Leaving the home is medically contraindicated at this time without the asist of a device and/or another person due th the listed conditions above and below. Reason homebound: unsteady gait / fall risk and weakness related to hospital stay Certification: Based on the above findings, I certify that this patient is confined to the home and needs intermittent nursing home care, physical therapy and/or speech therapy, or continues to need occupational therapy. The patient is under my care, and I have initiated the establishment of the plan of care. The patient will be followed by a physician who will periodically review the plan of care. Time Spent With Patient Time: Total time managing care of this patient today ____ minutes.
--- NOTE | 2023-11-18 10:51 | PM.DS ---
DS: Providers Provider Date of Service: 11/18/23 Date of admission: 11/15/23 12:21 Date of discharge: 11/18/23 Primary care physician: Cheyenne Aragon MD DS: Diagnosis Discharge Diagnosis (1) Acute and chronic respiratory failure with hypoxia: Status: Acute (2) CHF exacerbation: Status: Acute (3) Acute on chronic HFrEF (heart failure with reduced ejection fraction): Status: Acute DS: Summary Hospital Course Hospital Course: From the history and physical by the admitting hospitalist, ADITYA Emerson, 11/17/23: 78 year old male with history of HFrEF with chronic hypoxemic respiratory failure on 2-3L supplemental O2 at baseline, Chronic Afib on eliquis, htn, BPH, hx DVT presented to the ED with his , Hayley, for evaluation of LORENZO, orthopnea gradually worsening over 1 week. Has increased O2 requirement to 5L with condenser. He was hostpialized 1 month ago for acute CHF exacerbation with EF noted to be 40-45% at that time and was discharged on [id number] daily which he has been compliant with. Reports gradual weight loss of 20 pounds since then, no acute weight gain. Has been watching sodium though has been drinking electrolyte rich beverages such as gatorade. Not compliant with fluid restrictions- drinks up to 2L daily. Also reports eating sodium rich cripsy duck last night. 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 In the ED, hypertensive to 157/94. Vitals otherwise stable. Hematology studies unremarkable overall. Renal function baseline, electrolytes normal. BNP 891. Trop WNL. VBG reassuring. UA unremarkable. Negative for COVID-19, flu. CXR shows patchy radioopacities throughout lung aggarwal, probable small left sided pleural effusion and accentuation of the pulmonary vasculature. In the ED has been given 40mg IV lasix and has been weaned to baseline 3L supplemental O2. He was admitted to the telemetry unit and diuresed net negative 1.4L with IV furosemide. His symptoms resolved and he was discharged home with VNA services and his usual oxygen requirement. Likely CHF exacerbation was triggered by dietary indiscretion. Time Attestation Discharge coordination time: Greater than 30 minutes Quality: Safe Use of Opioids Does Pt have an Active Cancer Diagnosis on the Problem List?: No Quality: Stroke Does the patient have a stroke diagnosis?: No Physical Exam Vital Signs: Vital Signs: Last Vital Signs Temp 97.6 F 11/18/23 07:40 Pulse 86 11/18/23 07:40 Resp 18 11/18/23 07:40 BP 136/81 11/18/23 07:40 Pulse Ox 95 11/18/23 07:40 O2 Del Method Nasal Cannula 11/18/23 07:40 O2 Flow Rate 2 11/18/23 07:40 Oxygen Flow Rate 3 11/15/23 09:51 BMI result Body Mass Index 31.3 Gen: in no acute distress HEENT: sclera anicteric, moist mucus membranes Neck: supple Lungs: clear to auscultation bilaterally Heart: irregular, no murmurs Abd: soft, non-tender, non-distended Ext: trace lower extremity edema Skin: warm/well-perfused Neuro: alert and oriented x3, no focal findings Psych: appropriate affect DS: Data Data Completed and Pending Completed studies during hospitalization [Text1]: Laboratory Results WBC 8.1 X10*3/uL (4.8-10.8) 11/16/23 06:05 RBC 4.45 X10*6/uL (4.60-5.80) L 11/16/23 06:05 Hgb 13.7 g/dl (14.0-18.0) L 11/16/23 06:05 Hct 40.9 % (42.0-52.0) L 11/16/23 06:05 MCV 91.9 fL (80.0-98.0) 11/16/23 06:05 MCH 30.8 pg (27.0-33.0) 11/16/23 06:05 MCHC 33.5 g/dl (31.0-36.0) 11/16/23 06:05 RDW 14.3 % (11.0-16.0) 11/16/23 06:05 Plt Count 181 X10*3/uL (160-400) 11/16/23 06:05 MPV 10.4 fL (9.4-12.4) 11/16/23 06:05 Immature Gran % (Auto) 0.4 % (0.0-0.4) 11/16/23 06:05 Neut % (Auto) 74.2 % (45-73) H 11/16/23 06:05 Lymph % (Auto) 16.7 % (20-40) L 11/16/23 06:05 [place] % (Auto) 7.3 % (2-11) 11/16/23 06:05 Eos % (Auto) 1.0 % (0-4) 11/16/23 06:05 Baso % (Auto) 0.4 % (0-2) 11/16/23 06:05 Lymph # (Auto) 1.4 X10*3/uL (1.2-4.9) 11/16/23 06:05 [place] # (Auto) 0.6 X10*3/uL (0.1-1.2) 11/16/23 06:05 Eos # (Auto) 0.1 X10*3/uL (0.0-0.4) 11/16/23 06:05 Baso # (Auto) 0.0 X10*3/uL (0.0-0.2) 11/16/23 06:05 Abs Immat Gran (auto) 0.03 X10*3/uL (0.00-0.03) 11/16/23 06:05 Absolute Neuts (auto) 6.0 x10*3/uL (2.0-8.3) 11/16/23 06:05 Absolute Nucleated RBC 0.000 X10*3/uL (0.0-0.012) 11/16/23 06:05 Nucleated RBC % (auto) 0.0 /100WBC (0.0-0.2) 11/16/23 06:05 VBG pH 7.43 (7.32-7.43) 11/15/23 09:49 VBG pCO2 35 mmHg 11/15/23 09:49 VBG pO2 50 mmHg 11/15/23 09:49 VBG HCO3 24 mmol/L (22-26) 11/15/23 09:49 VBG O2 Saturation 80.0 % 11/15/23 09:49 VBG Base Excess 0.3 mmol/L 11/15/23 09:49 Sodium 137 mmol/L (135-145) 11/18/23 05:39 Potassium 3.6 mmol/L (3.3-5.1) 11/18/23 05:39 Chloride 98 mmol/L (96-108) 11/18/23 05:39 Carbon Dioxide 32 mmol/L (22-29) H 11/18/23 05:39 Anion Gap 11 (12-20) L 11/18/23 05:39 BUN 19 mg/dL (9-16) H 11/18/23 05:39 Creatinine 0.78 mg/dL (0.5-1.4) 11/18/23 05:39 Estim Creat Clear Calc 98.8 11/18/23 05:39 Estimated GFR > 60 11/18/23 05:39 Random Glucose 95 mg/dL (60-115) 11/18/23 05:39 Calcium 9.2 mg/dL (8.4-10.2) 11/18/23 05:39 Magnesium 1.7 mg/dL (1.6-2.6) 11/18/23 05:39 Total Bilirubin 1.4 mg/dL (0.0-1.0) H 11/15/23 11:01 Direct Bilirubin 0.4 mg/dL (0.0-0.5) 11/15/23 11:01 AST 9 U/L (5-37) 11/15/23 11:01 ALT < 5 U/L (0-40) 11/15/23 11:01 Alkaline Phosphatase 90 U/L (39-117) 11/15/23 11:01 Troponin I High Sens 10.7 ng/L (<3.5-35.0) 11/15/23 17:13 B-Natriuretic Peptide 922 pg/mL (<100) H 11/18/23 05:39 Total Protein 8.6 g/dL (6.5-8.0) H 11/15/23 11:01 Albumin 3.3 g/dL (3.5-5.0) L 11/15/23 11:01 Lipase 16 U/L (8-78) 11/15/23 11:01 Procalcitonin 0.05 ng/mL 11/15/23 11:01 Urine Color Yellow 11/15/23 10:06 Urine Appearance Clear 11/15/23 10:06 Urine pH 6.5 (5.0-9.0) 11/15/23 10:06 Ur Specific [place] 1.020 (1.005-1.025) 11/15/23 10:06 Urine Protein Trace mg/dL (Neg-Trace) 11/15/23 10:06 Urine Glucose (UA) Negative mg/dL (Negative) 11/15/23 10:06 Urine Ketones Negative mg/dL (Negative) 11/15/23 10:06 Urine Blood Negative (Negative) 11/15/23 10:06 Urine Nitrite Negative (Negative) 11/15/23 10:06 Ur Leukocyte Esterase Negative (Negative) 11/15/23 10:06 COVID-19 (HIMANSHU) Negative (Negative) 11/15/23 09:46 COVID-19 Clin Com See Note 11/15/23 09:46 Influenza Type A (ELISABETH) Negative (Negative) 11/15/23 09:46 Influenza Type B (ELISABETH) Negative (Negative) 11/15/23 09:46 Influenza A & B Note See Note 11/15/23 09:46 Impressions Chest X-Ray 11/15/23 09:48 IMPRESSION: 1. Redemonstration of patchy radiopacities throughout the bilateral lung aggarwal. 2. Blunting of the left costophrenic recess which may reflect a small pleural effusion versus scarring. 3. Accentuation of pulmonary vasculature. 4. Flattening the bilateral hemidiaphragms. Discharge Plan Discharge Anticipated Discharge Date/Time: 11/18/23 10:45 Patient Disposition: Home Health Service Discharge Diagnosis: CHF exacerbation Referrals: Cheyenne Aragon MD [Primary Care Provider] - 1 Week Discharge Medications: Continued amlodipine 2.5 mg Tablet 2.5 mg PO DAILY tamsulosin 0.4 mg Capsule 0.4 mg PO BEDTIME omeprazole 20 mg Capsule,Delayed Release(Dr/Ec) 20 mg PO DAILY@0630 Gemtesa 75 mg Tablet 75 mg PO BEDTIME furosemide 40 mg Tablet 40 mg PO DAILY metoprolol succinate 50 mg Tablet Extended Release 24 Hr 50 mg PO DAILY finasteride 5 mg Tablet 5 mg PO BEDTIME duloxetine 60 mg Capsule,Delayed Release(Dr/Ec) 60 mg PO DAILY apixaban 5 mg Tablet 5 mg PO BID acetaminophen 325 mg Tablet 1,000 mg PO DAILY vitamin A-vitamin C-vit E-min Tablet 1 tab PO DAILY ketoconazole 2 % Shampoo 1 appl TOPICAL Q48H PRN (Reason: dandruff) albuterol 90 mcg/actuation Aerosol 1 mcg INHALATION Q4H PRN (Reason: Shortness Of Breath Or Wheezing) Discharge Orders: Discharge Order (Routine); Ordered 11/18/23 Ordered By: Kiara Clark Diet: Advance to usual diet Activity on Discharge: As tolerated Stand Alone Forms: Patient Portal Discharge page Care Plan Goals: Cardiac health Health Concerns: CHF exacerbation Plan of Treatment: Low-sodium diet: less than 2000 mg of sodium daily. Weigh yourself daily and call your doctor if your weight goes up by more than 3 lb/day or 5 lb/week. Continue furosemide 40 mg daily. Please follow up with your primary care doctor within 1 week. Return to the hospital if you experience recurrent or worsening symptoms. Assessment: See Discharge Summary.
== END 2023-11-18 11:58 | disposition home health service (06) | DRG 291 ==
LOC: HO.ED 11:58 → HO.EDOVER 12:33 → HO.S3 11-17 17:40
PROVIDERS: Internal Medicine; Admitting Provider Physician Assistant; Emergency Provider Emergency Medicine; PCP Family Medicine; Visit Provider Family Medicine
DX: I11.0 Hypertensive heart disease with heart failure (principal); I50.23 Acute on chronic systolic (congestive) heart failure; J96.21 Acute and chronic respiratory failure with hypoxia; I48.20 Chronic atrial fibrillation, unspecified; N40.0 Benign prostatic hyperplasia without lower urinary tract symptoms; Z20.822 Contact with and (suspected) exposure to COVID-19; Z99.81 Dependence on supplemental oxygen; Z79.01 Long term (current) use of anticoagulants; Z79.899 Other long term (current) drug therapy
CPT/HCPCS: 36415; 71045; 80048; 80076; 81003; 82803; 83690; 83735; 83880; 84145; 84484; 85025; 87502; 87635; 93005; 97116; 97162; 99285; J1940

== ENCOUNTER → 2023-11-15 09:31 | Outpatient (BNV) | payer MEDICARE, SELFPAY | PROVIDERS: Admitting Provider Physician Assistant; Emergency Provider Emergency Medicine; PCP Family Medicine; Visit Provider Internal Medicine Cardiovascular Disease | DX: R06.00 Dyspnea, unspecified (principal) | CPT/HCPCS: 93010 ==

== ENCOUNTER → 2023-11-15 12:21 | Outpatient (BNV) | payer MEDICARE, SELFPAY | PROVIDERS: Admitting Provider Physician Assistant; Emergency Provider Emergency Medicine; PCP Family Medicine; Visit Provider Physician Assistant | DX: J96.21 Acute and chronic respiratory failure with hypoxia (principal); I50.23 Acute on chronic systolic (congestive) heart failure | CPT/HCPCS: 99223; 99232; 99239; G0180 ==

== ENCOUNTER 2024-06-22 11:02 | Emergency (ER) | payer MEDICARE, SELFPAY ==
[2024-06-22] VITALS (14 sets, daily range): BP systolic 84–113; BP diastolic 56–78; PULSE 70–120; RESP 16–24; TEMP 35.6–36.3; O2SAT 94–97; BMI 30.5; BMI 32.2
--- NOTE | ~2024-06-22 | XR_ITS ---
EXAMINATION: XR CHEST CLINICAL INFORMATION: Dyspnea COMPARISON: Chest x-ray on 11/15/2023 TECHNIQUE: 2 views of the chest were obtained. FINDINGS: The cardiac silhouette is enlarged but stable. There is mild-moderate increased pulmonary vascularity. There is bibasilar atelectasis adjacent to small pleural effusions. XR/XR chest 2V IMPRESSION: Mild-moderate pulmonary edema. Electronically signed by: Erna Mojica MD 06/22/2024 01:45 PM EDT
--- NOTE | 2024-06-22 11:14 | ED_ITS ---
HPI - General Adult General Chief complaint: Dyspnea Stated complaint: WEAK,SOB,SWOLLEN LEGS,HR 120-170 PER EMS Time Seen by Provider: 06/22/24 11:06 Source: patient, EMS and RN notes reviewed Mode of arrival: EMS Limitations: no limitations History of Present Illness ED Provider: jennie HPI narrative: Patient is a 78-year-old male with history of CHF on lasix EF 40-45%, obesity, chronic respiratory failure on 2-3L home O2, DVT/PE on eliquis, afib, HTN, BPH, mood disorder presenting to the emergency department with complaint of worsening dyspnea and pedal edema. Upon EMS arrival patient was noted to be hypoxic but not wearing his home O2, was in rapid afib 120-170s. He denies chest pain or palpitations. Denies recent fevers. Denies cough. Denies sick contacts. Denies abdominal pain, nausea, vomiting, diarrhea. States that he took his medications as prescribed this morning except for his potassium because it is too large for him to swallow. MD complaint: shortness of breath Onset (ago): day(s) Severity: similar to prior episodes Treatments prior to arrival: none Related Data Home Medications ?Medication ?Instructions ?Recorded ?Confirmed acetaminophen 325 mg tablet 1,000 mg PO DAILY 09/17/23 11/15/23 amlodipine 2.5 mg tablet 2.5 mg PO DAILY 09/17/23 11/15/23 apixaban 5 mg tablet 5 mg PO BID 09/17/23 11/15/23 duloxetine 60 mg capsule,delayed 60 mg PO DAILY 09/17/23 11/15/23 release finasteride 5 mg tablet 5 mg PO BEDTIME 09/17/23 11/15/23 furosemide 40 mg tablet 40 mg PO DAILY 09/17/23 11/15/23 ketoconazole 2 % shampoo 1 appl topical Q48H PRN dandruff 09/17/23 11/15/23 metoprolol succinate 50 mg 50 mg PO DAILY 09/17/23 11/15/23 tablet,extended release 24 hr omeprazole 20 mg capsule,delayed 20 mg PO DAILY@0630 09/17/23 11/15/23 release tamsulosin 0.4 mg capsule 0.4 mg PO BEDTIME 09/17/23 11/15/23 vibegron 75 mg tablet (Gemtesa) 75 mg PO BEDTIME 09/17/23 11/15/23 vitamin A-vitamin C-vit E-min 1 tab PO DAILY 09/17/23 11/15/23 tablet albuterol 90 mcg/actuation aerosol 1 mcg inhalation Q4H PRN Shortness 11/15/23 11/15/23 inhaler Of Breath Or Wheezing Allergies Allergy/AdvReac Type Severity Reaction Status Date / Time mometasone furoate Allergy Rash Verified 06/22/24 11:15 Review of Systems 2 Review of Systems: As per HPI. Yes all other systems are reviewed and are negative Constitutional: Constitutional: Reports as per HPI [facility] Past Medical History Medical History (Updated 06/22/24 @ 17:23 by Noe Boone MD) Chronic respiratory failure DVT (deep venous thrombosis) Afib Acute on chronic systolic and diastolic heart failure, NYHA class 3 Pneumonia Social History Social History Household Members: Spouse Household Members Other:: Kezia, . Housing: House Housing Other:: [facility]assisted living. Do you presently have visiting nurse or other home services: No Alcohol intake: current Alcohol intake frequency: holidays/special occasions only Patient Tobacco Use Status: Never used Tobacco Smoked in Last 30 Days: No Use of substances other than those prescribed or required for medical reasons: No Advance Directives: No Advance Directives Information Provided: No Do you have a plan to hurt others: No Plan service: No Physical Exam ED Vital Signs: Vital Signs - 24 hr 06/22/24 11:12 06/22/24 11:23 06/22/24 14:08 Temperature 96.1 F L 96.1 F L Pulse Rate 93 93 97 Respiratory Rate 22 H 22 H 24 H Blood Pressure 91/60 91/60 95/65 Pulse Oximetry 95 95 96 Oxygen Delivery Method Nasal Cannula Nasal Cannula Nasal Cannula Oxygen Flow Rate 2.5 06/22/24 14:31 06/22/24 15:42 06/22/24 16:33 Temperature Pulse Rate 96 93 87 Respiratory Rate 16 18 Blood Pressure 92/65 87/60 L 84/56 L Pulse Oximetry 96 95 Oxygen Delivery Method Room Air Room Air Oxygen Flow Rate 06/22/24 17:02 06/22/24 17:12 06/22/24 17:22 Temperature Pulse Rate 70 96 84 Respiratory Rate 17 19 Blood Pressure 104/64 112/63 105/68 Pulse Oximetry 95 95 96 Oxygen Delivery Method Nasal Cannula Nasal Cannula Nasal Cannula Oxygen Flow Rate 3 3 3 06/22/24 17:34 06/22/24 17:36 06/22/24 17:56 Temperature Pulse Rate 102 H 92 Respiratory Rate 18 18 Blood Pressure 100/69 100/60 113/63 Pulse Oximetry 96 96 Oxygen Delivery Method Nasal Cannula Nasal Cannula Oxygen Flow Rate 3 3 06/22/24 18:14 06/22/24 19:45 Temperature 97.4 F Pulse Rate 99 105 H Respiratory Rate 22 H 22 H Blood Pressure 110/78 105/72 Pulse Oximetry 97 96 Oxygen Delivery Method Nasal Cannula Nasal Cannula Oxygen Flow Rate 3 3 BMI result Body Mass Index 32.2 Vital signs have been reviewed and appear to be correct. Blood pressure low. Heart rate normal rate. Respiratory rate normal. Temperature normal. Oxygen saturation normal. Const General: cooperative and no acute distress Orientation/consciousness: oriented to person, oriented to place, oriented to time and patient oriented x3 Limitations: no limitations [facility] Head: Yes normocephalic and Yes atraumatic Ears: external ears normal General nose exam: Normal external nose present Face and sinus: Yes face symmetric Mouth: oropharynx normal and moist mucous membranes Throat: Yes uvula midline Eyes Pupils: Equal, round and reactive pupils present Neck Neck: Yes normal visual inspection and Yes supple Resp Effort & Inspection: normal respiratory effort and able to speak in complete sentences Auscultation: other (clear bilat upper, diminished bilat lower) Cardio Rate: regular rate Rhythm: regular rhythm Heart sounds: S1 normal heart sound present and S2 normal heart sound present GI Palpation (GI): Soft to palpation and nontender Auscultation: normoactive bowel sounds General: Yes no CVA tenderness Back/Spine/Pelvis Back: no CVA tenderness Skin General skin exam: elasticity normal, turgor normal and pallor (cool) Neuro General: oriented to person, oriented to place, oriented to time, patient oriented x3, moves all extremities, no focal motor deficits and CN's II-XI intact bilaterally Cranial nerves: Yes Equal, round and reactive pupils present Cognition (Neuro): normal cognition Extrem General: Yes full ROM and Yes no calf tenderness Right lower extremity: edema Details: pitting and 3+ Left lower extremity: edema Details: pitting and 3+ Psych Mental Status: mental status grossly normal Affect: normal affect Thought process: Normal thought process present Medications Administered Generic Name Dose Route Start Last Admin Trade Name Freq PRN Reason Stop Dose Admin Norepinephrine Bitartrate 8 mg in 250 mls @ 0 mls/hr 06/22/24 16:30 06/22/24 16:33 Levophed IVCONT 0.05 mcg/kg/min .Q0M REZA 10.37 mls/hr Administration Protocol Per Protocol Discontinued Medications Generic Name Dose Route Start Last Admin Trade Name Freq PRN Reason Stop Dose Admin Furosemide 20 mg 06/22/24 12:46 06/22/24 17:34 Furosemide 40 Mg/4 Ml Vial IVPUSH 06/22/24 12:47 20 mg ONCE ONE Administration Protocol Albumin Human 100 mls @ 100 mls/hr 06/22/24 13:00 06/22/24 15:41 Kedbumin 25 % IV 06/22/24 14:59 Infused Q1H REZA Infusion Medical Decision Making Medical Decision Making [facility] Narrative: Patient is a 78-year-old male with history of CHF on lasix EF 40-45%, obesity, chronic respiratory failure on 2-3L home O2, DVT/PE on eliquis, afib, HTN, BPH, mood disorder presenting to the emergency department with complaint of worsening dyspnea and pedal edema. On exam patient is awake, A+Ox3, afib 70s-90s, mildly hypotensive, afebrile, oxygen saturation improved to 93-94% on oxygen, normal neurological exam without focal deficits, physical exam findings as above. Given reported symptoms and physical exam findings suspect CHF exacerbation. BNP significantly elevated from baseline, initial review of CXR is consistent with CHF exacerbation, BUN/Cr elevated from baseline, albumin low. Case discussed with Dr. Alicia who recommends giving 2 albumin, then rechecking BP prior to giving furosemide. 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 She reports significant decline since, extreme fatigue, unable to ambulate past two days. CXR notable for mild-moderate pulmonary edema. My interpretation is in agreement with radiologist's interpretation. Patient is persistently hypotensive despite 2 albumin, furosemide held. Patient is cool/clammy, there is concern for cardiogenic shock. Do not suspect sepsis as patient has no leukocytosis, normal lactic. [place] Text to Dr. Boone who recommends transfer, case also discussed with Dr. Merchant who agrees with transfer. Norepinephrine ordered. 16:[address] Bryant from cardiology at [facility] who is requesting echo, wants to rule out effusion/tamponade, wants patient evaluated in person by application chemist here. [place] text to Dr. Boone who will come see patient at bedside. 17:[address] Boone, patient accepted to [facility], accepting is Dr. Melendez. He is recommending to given IV lasix and go up on norepi as needed. Transfer initiated. Differential Diagnosis Differential Diagnoses: The differential diagnosis associated with the presentation includes CHF exacerbation, viral illness, Covid, flu, pneumonia Admission/Observation Consideration of admission/observation: Escalation of care including admission/observation considered Lab Data [facility] Lab Attestation statement: I reviewed the patient's lab results. As per [facility] 06/22/24 12:13 06/22/24 12:13 Labs: Lab Results 06/22/24 06/22/24 Range/Units 12:13 12:15 WBC 7.5 (4.8-10.8) X10*3/uL RBC 4.15 L (4.60-5.80) X10*6/uL Hgb 12.9 L (14.0-18.0) g/dl Hct 38.1 L (42.0-52.0) % MCV 91.8 (80.0-98.0) fL MCH 31.1 (27.0-33.0) pg MCHC 33.9 (31.0-36.0) g/dl RDW 15.5 (11.0-16.0) % Plt Count 131 L D (160-400) X10*3/uL MPV 11.4 (9.4-12.4) fL Immature Gran % (Auto) 0.5 H (0.0-0.4) % Neut % (Auto) 80.7 H (45-73) % Lymph % (Auto) 8.1 L (20-40) % [place] % (Auto) 9.4 (2-11) % Eos % (Auto) 0.9 (0-4) % Baso % (Auto) 0.4 (0-2) % Lymph # (Auto) 0.6 L (1.2-4.9) X10*3/uL [place] # (Auto) 0.7 (0.1-1.2) X10*3/uL Eos # (Auto) 0.1 (0.0-0.4) X10*3/uL Baso # (Auto) 0.0 (0.0-0.2) X10*3/uL Abs Immat Gran (auto) 0.04 H (0.00-0.03) X10*3/uL Absolute Neuts (auto) 6.1 (2.0-8.3) x10*3/uL Absolute Nucleated RBC 0.000 (0.0-0.012) X10*3/uL Nucleated RBC % (auto) 0.0 (0.0-0.2) /100WBC PT 18.7 H (11.1-13.3) SEC INR 1.5 H (0.9-1.1) Sodium 134 L (135-145) mmol/L Potassium 4.4 D (3.3-5.1) mmol/L Chloride 95 L (96-108) mmol/L Carbon Dioxide 30 H (22-29) mmol/L Anion Gap 13 (12-20) BUN 29 H (9-16) mg/dL Creatinine 1.16 (0.5-1.4) mg/dL Estim Creat Clear Calc 65.6 Estimated GFR > 60 Random Glucose 121 H (60-115) mg/dL Lactic Acid 1.3 (0.5-2.0) mmol/L Calcium 9.2 (8.4-10.2) mg/dL Magnesium 1.6 (1.6-2.6) mg/dL Total Bilirubin 1.4 H (0.0-1.0) mg/dL AST 9 (5-37) U/L ALT 7 (0-40) U/L Alkaline Phosphatase 97 (39-117) U/L Troponin I High Sens 11.7 (<3.5-35.0) ng/L B-Natriuretic Peptide 2675 H (<100) pg/mL Total Protein 7.1 (6.5-8.0) g/dL Albumin 3.2 L (3.5-5.0) g/dL Influenza Type A (PCR) NEGATIVE (Negative) Influenza Type B (PCR) NEGATIVE (Negative) RSV RNA Qual (PCR) NEGATIVE (Negative) SARS-CoV-2 RNA (RT-PCR) NEGATIVE (Negative) Independent Interpretation I performed an independent interpretation of an: EKG (atrial fibrillation with PVCs, rate 88bpm, normal QTc) and Plain X-Ray Interpretation: Moderate pulmonary edema on CXR Radiology Impression Discussion of test interpretation with radiology: I have reviewed the radiologist's reading. Radiologist Impression: XR/XR chest 2V IMPRESSION: Mild-moderate pulmonary edema. External Record Review External record reviewed: Inpatient record, Office record and Outpatient record Critical Care Time Critical Care Time Critical Care Time: Yes Total Critical Care Time: 65 Attestation: I have personally provided critical care time exclusive of time spent on separately billable procedures. Time includes review of lab data, radiology results, discussion with consultants, and monitoring for potential decompensation. Intervention performed as documented. Discharge Plan Discharge Clinical Impression: Cardiogenic shock Patient Disposition: [facility] Transfer Details: to [facility], accepting Dr. Melendez Prescriptions: No Action amlodipine 2.5 mg Tablet 2.5 mg PO DAILY tamsulosin 0.4 mg Capsule 0.4 mg PO BEDTIME omeprazole 20 mg Capsule,Delayed Release(Dr/Ec) 20 mg PO DAILY@0630 Gemtesa 75 mg Tablet 75 mg PO BEDTIME furosemide 40 mg Tablet 40 mg PO DAILY metoprolol succinate 50 mg Tablet Extended Release 24 Hr 50 mg PO DAILY finasteride 5 mg Tablet 5 mg PO BEDTIME duloxetine 60 mg Capsule,Delayed Release(Dr/Ec) 60 mg PO DAILY apixaban 5 mg Tablet 5 mg PO BID acetaminophen 325 mg Tablet 1,000 mg PO DAILY vitamin A-vitamin C-vit E-min Tablet 1 tab PO DAILY ketoconazole 2 % Shampoo 1 appl TOPICAL Q48H PRN (Reason: dandruff) albuterol 90 mcg/actuation Aerosol 1 mcg INHALATION Q4H PRN (Reason: Shortness Of Breath Or Wheezing) Interventions: Acute Care Transfer Worksheet (ED) Last Done: 06/22/24 19:45 Print Language: Sinhala
--- NOTE | 2024-06-22 11:14 | ECG_ITS ---
Test Reason : tachycardia Blood Pressure : / mmHG Vent. Rate : 088 BPM Atrial Rate : 000 BPM P-R Int : 000 ms QRS Dur : 136 ms QT Int : 368 ms P-R-T Axes : 000 036 207 degrees QTc Int : 445 ms Atrial fibrillation with premature ventricular or aberrantly conducted complexes Non-specific intra-ventricular conduction block Nonspecific T wave abnormality Abnormal ECG When compared with ECG of 15-NOV-2023 10:12, Non-specific intra-ventricular conduction block has replaced Incomplete right bundle branch block Criteria for Septal infarct are no longer Present Referred By: Nadia Jaimes Electronically Signed By:SHERRILL SIERRA
[2024-06-22 12:20] LABS: MANUAL DIFF FLAG NO
[2024-06-22 12:24] LABS: Basophils Percent Auto 0.4 % (0-2); Eosinophils Absolute Auto 0.1 X10*3/uL (0.0-0.4); Eosinophils Percent Auto 0.9 % (0-4); Hematocrit 38.1 % (42.0-52.0); Hemoglobin 12.9 g/dl (14.0-18.0); Imm Gran Abs Auto 0.04 X10*3/uL (0.00-0.03); Imm Gran Pct Auto 0.5 % (0.0-0.4); Lymphocytes Absolute Auto 0.6 X10*3/uL (1.2-4.9); Lymphocytes Percent Auto 8.1 % (20-40); Mean Corpuscular HGB Conc 33.9 g/dl (31.0-36.0); Mean Corpuscular Hemoglobin 31.1 pg (27.0-33.0); Mean Corpuscular Volume 91.8 fL (80.0-98.0); Mean Platelet Volume 11.4 fL (9.4-12.4); Monocytes Absolute Auto 0.7 X10*3/uL (0.1-1.2); Monocytes Percent Auto 9.4 % (2-11); Neutrophils Absolute Auto 6.1 x10*3/uL (2.0-8.3); Neutrophils Percent Auto 80.7 % (45-73); Platelet Count 131 X10*3/uL (160-400); Red Blood Count 4.15 X10*6/uL (4.60-5.80); Red Cell Distribution Width 15.5 % (11.0-16.0); White Blood Count 7.5 X10*3/uL (4.8-10.8)
[2024-06-22 12:27] LABS: INTERNATIONAL NORM RATIO 1.5 (0.9-1.1); Prothrombin Time 18.7 SEC (11.1-13.3)
[2024-06-22 12:32] LABS: Lactic Acid 1.3 mmol/L (0.5-2.0)
[2024-06-22 12:37] LABS: Alanine Aminotransferase 7 U/L (0-40); Albumin Level 3.2 g/dL (3.5-5.0); Alkaline Phosphatase 97 U/L (39-117); Anion Gap 13 (12-20); Aspartate Amino Transferase 9 U/L (5-37); Bilirubin Total 1.4 mg/dL (0.0-1.0); Blood Urea Nitrogen 29 mg/dL (9-16); Calcium 9.2 mg/dL (8.4-10.2); Carbon Dioxide 30 mmol/L (22-29); Chloride 95 mmol/L (96-108); Creatinine Clr Calc Pharmacy 65.6; Estimated Glomerular Filt Rate > 60; Glucose Random 121 mg/dL (60-115); Magnesium 1.6 mg/dL (1.6-2.6); Potassium 4.4 mmol/L (3.3-5.1); Sodium 134 mmol/L (135-145); Total Protein 7.1 g/dL (6.5-8.0)
[2024-06-22 12:43] LABS: B Type Natriuretic Peptide 2675 pg/mL (<100)
[2024-06-22 12:44] LABS: Troponin-I High Sensitivity 11.7 ng/L (<3.5-35.0)
[2024-06-22 13:00] LABS: Influenza A PCR NEGATIVE (Negative); Influenza B PCR NEGATIVE (Negative); Resp Syncy Virus RNA Qual PCR NEGATIVE (Negative); SARS COV2 PCR INHOUSE NEGATIVE (Negative)
[2024-06-22] MEDS: Albumin Human 25 % 100 ML IV ×2 (13:04→14:31)
--- NOTE | 2024-06-22 14:35 | PC.NURSE ---
Second bag of Albumin started. BP 92/56--provider notified. Will reassess BP after infusion and report to provider for instruction on Lasix administration. Pt requests food, providers approves only if present. advised to notify RN if she is leaving so food can be removed from room.
[2024-06-22] MEDS: Norepinephrine Bitartrate/D5W 8 MG/250 ML PLAST..BAG 10.37 MG IVCONT (16:33)
--- NOTE | 2024-06-22 16:38 | PC.NURSE ---
Pt continues to be Hypotensive; plan is to transport to [facility]. Levophed started at a rate of 0.05 with BP checks Q5min. Pt is A&O to person, place and date. Skin is cool and dusky, forehead probe applied of accurate O2 readings. Pt denies any SOB. Speech is clear, concise and unlabored. Pt reports chronic low back pain, but otherwise is pain free.
--- NOTE | 2024-06-22 17:09 | PM.CNCAR ---
History of Present Illness History of Present Illness Date of Service: 06/22/24 Chief complaint: WEAK,SOB,SWOLLEN LEGS,HR 120-170 PER EMS Narrative: This is a cardiology consultation regarding hypotension and question of cardiogenic shock. Discussed with ER provider. Essentially patient with history of cardiomyopathy, chronic respiratory failure, presenting for shortness of breath and leg swelling. Apparently he had some lung lesion for which he underwent radiation that he finished about a week ago. 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 Since that time, he has been declining. Over the last couple of days, extreme fatigue, unable to ambulate. Increasing shortness of breath. Leg swelling. No clear-cut chest pains. He has been hypotensive since the time of arrival. He has been put on norepinephrine. Per ER provider, had a bedside echocardiogram that does not show any effusion. Diminished LVEF. Review of Systems Review of Systems: Yes all other systems are reviewed and are negative Constitutional: Constitutional: Reports as per HPI, Reports no additional constitutional complaints, Reports fatigue, Reports lethargy, Reports malaise and Reports weakness Eyes: Eyes: Reports as per HPI and Denies no additional eye complaints ENT: Denies system reviewed and no additional complaints, except as documented and Reports as per HPI Cardiovascular: Cardiovascular: Reports as per HPI, Reports no additional cardiovascular complaints, Denies acrocyanosis, Denies cool extremities, Denies chest pain, Reports pedal edema, Denies leg edema, Denies lightheadedness, Denies palpitations and Reports dyspnea Respiratory: Respiratory: Reports as per HPI, Denies no additional respiratory complaints and Reports dyspnea Gastrointestinal: Gastrointestinal: Reports as per HPI and Denies no additional gastrointestinal complaints Genitourinary: Genitourinary: Reports no additional male genitourinary complaints and Reports as per HPI Musculoskeletal: Musculoskeletal: Reports no additional musculoskeletal complaints and Reports as per HPI Integumentary/Breasts: Skin/Breast: Reports system reviewed and no additional complaints, except as docu Neurologic: Reports system reviewed and no additional complaints, except as documented, Reports as per HPI and Reports weakness Psychiatric: Psychiatric: Reports no additional psychiatric complaints and Reports as per HPI Endocrine: Endocrine: Reports no additional endocrine complaints, Reports as per HPI, Reports fatigue and Denies palpitations Hematologic/Lymphatic: Hematologic/Lymphatic: Reports no additional hematologic/lymphatic complaints and Reports as per HPI Allergic/Immunologic: Allergic/Immunologic: Reports no additional allergic/immunologic complaints and Reports as per [facility] Past Medical History Medical History (Updated 06/22/24 @ 17:23 by Noe Boone MD) Chronic respiratory failure DVT (deep venous thrombosis) Afib Acute on chronic systolic and diastolic heart failure, NYHA class 3 Pneumonia Family History Pertinent family history: No pertinent family history Social History Social History Household Members: Spouse Household Members Other:: Kezia, . Housing: House Housing Other:: [facility]assisted living. Do you presently have visiting nurse or other home services: No Alcohol intake: current Alcohol intake frequency: holidays/special occasions only Patient Tobacco Use Status: Never used Tobacco Smoked in Last 30 Days: No Use of substances other than those prescribed or required for medical reasons: No Advance Directives: No Advance Directives Information Provided: No Do you have a plan to hurt others: No Plan service: No Meds Allergies Allergy/AdvReac Type Severity Reaction Status Date / Time mometasone furoate Allergy Rash Verified 06/22/24 11:15 Active Medications: Current Medications Norepinephrine Bitartrate (Levophed) 8 mg in 250 mls @ 0 mls/hr IVCONT .Q0M REZA; Protocol Last Admin: 06/22/24 16:33 Dose: 0.05 mcg/kg/min, 10.37 mls/hr Home Medications ?Medication ?Instructions ?Recorded ?Confirmed ?Last Taken ?Type acetaminophen 325 mg tablet 1,000 mg PO DAILY 09/17/23 11/15/23 Unknown History amlodipine 2.5 mg tablet 2.5 mg PO DAILY 09/17/23 11/15/23 09/16/23 History apixaban 5 mg tablet 5 mg PO BID 09/17/23 11/15/23 Unknown History duloxetine 60 mg capsule,delayed 60 mg PO DAILY 09/17/23 11/15/23 Unknown History release finasteride 5 mg tablet 5 mg PO BEDTIME 09/17/23 11/15/23 Unknown History furosemide 40 mg tablet 40 mg PO DAILY 09/17/23 11/15/23 Unknown History ketoconazole 2 % shampoo 1 appl topical Q48H PRN dandruff 09/17/23 11/15/23 Unknown History metoprolol succinate 50 mg 50 mg PO DAILY 09/17/23 11/15/23 Unknown History tablet,extended release 24 hr omeprazole 20 mg capsule,delayed 20 mg PO DAILY@0630 09/17/23 11/15/23 Unknown History release tamsulosin 0.4 mg capsule 0.4 mg PO BEDTIME 09/17/23 11/15/23 Unknown History vibegron 75 mg tablet (Gemtesa) 75 mg PO BEDTIME 09/17/23 11/15/23 Unknown History vitamin A-vitamin C-vit E-min 1 tab PO DAILY 09/17/23 11/15/23 Unknown History tablet albuterol 90 mcg/actuation aerosol 1 mcg inhalation Q4H PRN Shortness 11/15/23 11/15/23 Unknown History inhaler Of Breath Or Wheezing Physical Exam Vital Signs: Vital Signs: Last Vital Signs Temp 96.1 F L 06/22/24 11:23 Pulse 70 06/22/24 17:02 Resp 18 06/22/24 15:42 BP 104/64 06/22/24 17:02 Pulse Ox 95 06/22/24 17:02 O2 Del Method Nasal Cannula 06/22/24 17:02 O2 Flow Rate 3 06/22/24 17:02 Oxygen Flow Rate 3 06/22/24 11:12 BMI result Body Mass Index 32.2 Const: General: comfortable and no acute distress Orientation/consciousness: patient oriented x3 HEENT: Other: Unremarkable Head: Yes normal to inspection Neck: Neck: Yes normal visual inspection Chest: Chest palpation & inspection: normal inspection of the chest Resp: Auscultation: crackles bilateral Cardio: Other: Difficult to assess JVD in his current position. Palpation: normal PMI Heart sounds: S1 normal heart sound present, S2 normal heart sound present, no gallops, no murmurs and no rubs GI: Palpation (GI): Soft to palpation Back/Spine/Pelvis: Other: unremarkable Skin: General skin exam: no rashes or lesions noted Neuro: General: patient oriented x3 Extrem: Other: 2+ edema bilateral General: Yes normal to inspection Psych: Mental Status: mental status grossly normal Objective Labs and Meds 06/22/24 12:13 06/22/24 12:13 Lab results: Laboratory Results - last 24 hr 06/22/24 06/22/24 12:13 12:15 WBC 7.5 RBC 4.15 L Hgb 12.9 L Hct 38.1 L MCV 91.8 MCH 31.1 MCHC 33.9 RDW 15.5 Plt Count 131 L D MPV 11.4 Immature Gran % (Auto) 0.5 H Neut % (Auto) 80.7 H Lymph % (Auto) 8.1 L [place] % (Auto) 9.4 Eos % (Auto) 0.9 Baso % (Auto) 0.4 Lymph # (Auto) 0.6 L [place] # (Auto) 0.7 Eos # (Auto) 0.1 Baso # (Auto) 0.0 Abs Immat Gran (auto) 0.04 H Absolute Neuts (auto) 6.1 Absolute Nucleated RBC 0.000 Nucleated RBC % (auto) 0.0 PT 18.7 H INR 1.5 H Sodium 134 L Potassium 4.4 D Chloride 95 L Carbon Dioxide 30 H Anion Gap 13 BUN 29 H Creatinine 1.16 Estim Creat Clear Calc 65.6 Estimated GFR > 60 Random Glucose 121 H Lactic Acid 1.3 Calcium 9.2 Magnesium 1.6 Total Bilirubin 1.4 H AST 9 ALT 7 Alkaline Phosphatase 97 Troponin I High Sens 11.7 B-Natriuretic Peptide 2675 H Total Protein 7.1 Albumin 3.2 L Influenza Type A (PCR) NEGATIVE Influenza Type B (PCR) NEGATIVE RSV RNA Qual (PCR) NEGATIVE SARS-CoV-2 RNA (RT-PCR) NEGATIVE ECG Interpretation: EKG shows atrial fibrillation at a rate of 88/Min; nonspecific intraventricular conduction defect; PVC. Imaging Radiologist's impression: Impressions Chest X-Ray 06/22/24 12:20 IMPRESSION: Mild-moderate pulmonary edema. Electronically signed by: Erna Mojica MD 06/22/2024 01:45 PM EDT Assessment and Plan (1) Acute on chronic combined systolic and diastolic CHF (congestive heart failure): Status: Acute (2) Cardiogenic shock: Status: Acute (3) Afib: Status: Acute Plan Known chronic heart failure, recent radiation therapy to lungs, progressive decline over the last few days, hypotension, acute heart failure type presentation. Unclear if it is all only heart failure of there is any superimposed noncardiac etiology for the hypotension. Agree with pressors for the hypotension. So far infection viral panel is negative. As blood pressure is somewhat higher now, okay to try small dose of diuretics. Based on troponins, no evidence of acute coronary syndrome. Per ER provider, he had a bedside echocardiogram that showed no evidence of pericardial effusion but diminished LVEF. Otherwise, he will need a critical level of care and recommend transferred to [facility]. Discussed with Dr. Melendez, accepted for transfer. Total critical care time spent including review of data, counseling, documentation, coordination of care, arranging transfer-60 minutes. Procedures Date of Service Date of Service: 06/22/24
[2024-06-22] MEDS: Furosemide 40 MG/4 ML VIAL 20 MG IVPUSH (17:34)
--- NOTE | 2024-06-22 18:34 | PC.NURSE ---
Call placed to [facility] for RN to audio installer [phone]. Pt is going to [facility] 3 Room 7 Spoke with RN Domingo, full report given. Domingo given opportunity for questions and all questions answered to satisfaction. Awaiting ambulance arrival for transport.
--- NOTE | 2024-06-23 12:41 | PC.NURSE ---
positive blood culture results faxed to [place] [phone]
== END 2024-06-22 19:45 | disposition short-term general hospital (02) ==
PROVIDERS: Registered Nurse Emergency; Emergency Provider Emergency Medicine; PCP Family Medicine
DX: R57.0 Cardiogenic shock (principal); I50.43 Acute on chronic combined systolic (congestive) and diastolic (congestive) heart failure; I48.91 Unspecified atrial fibrillation; Z03.818 Encounter for observation for suspected exposure to other biological agents ruled out; R06.00 Dyspnea, unspecified; R06.02 Shortness of breath; R60.0 Localized edema; Z86.718 Personal history of other venous thrombosis and embolism; Z79.01 Long term (current) use of anticoagulants
CPT/HCPCS: 0241U; 36415; 71046; 80053; 83605; 83735; 83880; 84484; 85025; 85610; 87040; 87147; 87205; 93005; 96365; 96366; 96375; 99285; J1940; P9047

== ENCOUNTER → 2024-06-22 11:40 | Outpatient (BNV) | payer MEDICARE, SELFPAY | PROVIDERS: Emergency Provider Emergency Medicine; PCP Family Medicine; Visit Provider Internal Medicine | DX: I50.43 Acute on chronic combined systolic (congestive) and diastolic (congestive) heart failure (principal); R57.0 Cardiogenic shock; I48.91 Unspecified atrial fibrillation | CPT/HCPCS: 99285 ==

== ENCOUNTER 2024-07-17 07:00 | Outpatient (REF) | payer MEDICARE, SELFPAY | END 2024-07-17 07:01 | disposition home or self-care (01) | LOC: HO.MMNH2L 07:00 | PROVIDERS: Visit Provider Internal Medicine | DX: Z13.89 Encounter for screening for other disorder (principal) ==